=== PATIENT | female | born 1940 | race Caucasian/White ===

== ENCOUNTER 2017-05-31 15:47 | Emergency (ER) | payer MEDICARE, OTHER ==
[2017-05-31 16:13] LABS: #Eosinphils 0.2 thou/uL (0.0-0.7); #Lymphocytes 1.2 thou/uL (1.20-3.40); #Monocytes 0.7 thou/uL (0.11-0.59); #Neutrophils 11.2 thou/uL (1.40-6.50); %Basophils 0.3 % (0.0-1.0); %Eosinophils 1.8 % (0.0-10.0); %Lymphocytes 9.1 % (21.0-51.0); %Monocytes 4.9 % (0.0-10.0); Hematocrit 33.7 % (36.0-47.0); Mean Platelet Volume 7.2 fL (7.4-10.4); Red Blood Cell (RBC) Count 3.83 mill/uL (4.20-5.40); White Blood Cell (WBC) Count 13.3 thou/uL (4.8-10.8)
[2017-05-31 16:36] LABS: ALT (SGPT) 15 U/L (8-55); AST (SGOT) 33 U/L (5-34); Alkaline Phosphatase 90 U/L (40-150); Anion Gap 16 mmol/L (10-20); BUN (Urea Nitrogen) 25 mg/dL (9.8-20.1); Bilirubin, Total 0.2 mg/dL (0.2-1.2); Calc. Creatinine Clearance 0 mL/min (70-130); Calcium 10.1 mg/dL (7.8-10.44); Carbon Dioxide 23 mmol/L (23-31); Chloride 96 mmol/L (98-107); Estimated GFR-MDRD 46; Globulin 3.6 g/dL (2.4-3.5); Protein, Total 7.1 g/dL (6.0-8.3)
[2017-05-31 17:24] LABS: Bilirubin Negative (Negative); Blood, Urine Trace (Negative); Glucose, Urine (Dipstick) Negative (Negative); Ketone, Urine Negative (Negative); Nitrite Negative (Negative); Protein, Urine (Dipstick) Negative (Neg-Trace); Urobilinogen 0.2 mg/dL (0.2-1.0)
[2017-05-31 17:25] LABS: Bacteria/HPF Rare-Few HPF (None Seen); Hyaline Casts/LPF 4-6 HYALINE CAST LPF (0-3 Hyaline); RBC/HPF 0-3 HPF (0-3); Squamous Epithelial 21-50 HPF (0-3); WBC/HPF 0-3 HPF (0-3)
--- NOTE | 2017-05-31 18:47 | CT ---
CT HEAD WITHOUT IV CONTRAST 05/31/2017 HISTORY: Altered mental status after a fall. COMPARISON: None available. FINDINGS: There is decreased attenuation scattered within the periventricular and subcortical white matter whi ch is nonspecific but likely reflective of chronic small vessel ischemic changes. There is no evide nce of an acute cortical infarction, hemorrhage, mass effect, or midline shift. There is mild cereb ral volume loss not unexpected for the patient's age. The ventricular system is normal in size, sha pe, and position for the degree of sulcal atrophy. The visualized paranasal sinuses and mastoid air cells are clear. Calvarial structures are intact without evidence of a fracture. IMPRESSION: 1. No acute intracranial abnormality is demonstrated. 2. Findings likely reflective of moderate chronic small vessel ischemic changes. POS: PO
--- NOTE | 2017-05-31 19:00 | RAD ---
RIGHT KNEE FOUR VIEWS: HISTORY: A 76-year-old female with knee pain following a fall. FINDINGS: There are tricompartment degenerative changes. There are stable distal femoral and proximal tibial bone infarcts with some prominent associated ossification. No acute fracture or dislocation. IMPRESSION: No acute fracture or dislocation. Degenerative changes. 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 POS: TODD
== END 2017-05-31 18:00 | disposition home or self-care (01) ==
LOC: ERS 15:47
DX: S80.01XA Contusion of right knee, initial encounter (principal); E86.0 Dehydration; E20.9 Hypoparathyroidism, unspecified; I11.0 Hypertensive heart disease with heart failure; I50.9 Heart failure, unspecified; J44.9 Chronic obstructive pulmonary disease, unspecified; F41.9 Anxiety disorder, unspecified; F32.9 Major depressive disorder, single episode, unspecified; F17.210 Nicotine dependence, cigarettes, uncomplicated; Z79.899 Other long term (current) drug therapy; W19.XXXA Unspecified fall, initial encounter
CPT/HCPCS: 70450; 80053; 81003; 81015; 85025; 93005

== ENCOUNTER 2018-05-07 11:49 | Inpatient (IN) | payer MEDICARE, OTHER ==
[2018-05-07 12:10] LABS: Hemoglobin 10.1 g/dL (12.0-16.0); Mean Corpuscular HGB CONC 32.3 g/dL (32.0-36.0); Mean Corpuscular Hemoglobin 27.5 pg (27.0-31.0); Mean Corpuscular Volume 85.4 fL (78.0-98.0); Mean Platelet Volume 7.8 fL (7.4-10.4); Platelet Count 257 thou/uL (130-400); RBC Distribution Width 14.9 % (11.5-14.5); Red Blood Cell (RBC) Count 3.68 mill/uL (4.20-5.40); White Blood Cell (WBC) Count 9.1 thou/uL (4.8-10.8)
[2018-05-07 12:18] LABS: Prothrombin Time 13.3 SEC (12.0-14.7)
[2018-05-07 12:22] LABS: ALT (SGPT) 17 U/L (8-55); AST (SGOT) 43 U/L (5-34); Albumin 3.3 g/dL (3.4-4.8); Alkaline Phosphatase 106 U/L (40-150); Anion Gap 17 mmol/L (10-20); BUN (Urea Nitrogen) 19 mg/dL (9.8-20.1); Bilirubin, Total 0.6 mg/dL (0.2-1.2); Calc. Creatinine Clearance 0 mL/min (70-130); Calcium 9.7 mg/dL (7.8-10.44); Carbon Dioxide 19 mmol/L (23-31); Chloride 100 mmol/L (98-107); Estimated GFR-MDRD 58; Globulin 3.5 g/dL (2.4-3.5); Glucose 70 mg/dL (83-110); Potassium 4.4 mmol/L (3.5-5.1); Protein, Total 6.8 g/dL (6.0-8.3); Sodium 132 mmol/L (136-145)
[2018-05-07 12:27] LABS: CKMB 12.6 ng/mL (0-6.6); Troponin I 0.712 ng/mL (< 0.028)
[2018-05-07 12:35] LABS: Band 2 % (5-11); Hypochromia SLIGHT = 6-15 cells (100X) (0-5/hpf); Lymphocytes 6 % (21-51); MDiff Complete? YES; Monocytes 10 % (0-10); Neutrophil 82 % (42-75); PLT Morphology Comment Appears Adequate
--- NOTE | 2018-05-07 14:18 | CT ---
BRAIN CT WITHOUT IV CONTRAST: HISTORY: A 77-year-old female with slurred speech found down yesterday. FINDINGS: There is some atrophy and chronic white matter ischemic changes noted bilaterally. No focal mass or midline shift. No intra- or extraaxial hemorrhage. Status post nasal sinal surgery. The mastoids a re clear. IMPRESSION: Atrophy and chronic white matter ischemic change. No mass or bleed. Findings were discussed with Dr. Schmidt at 12:05 p.m. CODE CR POS: PO
--- NOTE | 2018-05-07 14:38 | CT ---
CT ANGIOGRAM OF THE HEAD CT ANGIOGRAM OF THE NECK CT PERFUSION OF THE BRAIN: DATE: 05/07/18. COMPARISON: None. HISTORY: Slurred speech which began yesterday at 4:00 p.m. when the patient was found down. TECHNIQUE: Serial axial CT imaging obtained at 1.25 mm intervals from the lung apices through the vertex with IV contrast using a CT angiogram protocol. Coronal and sagittal 3D reformatted imaging obtained. In a ddition, CT perfusion maps were obtained of the brain. FINDINGS: The imaged upper chest demonstrates extensive nonspecific interstitial and alveolar opacity involving bilateral upper lobes, right greater than left, as well as the bilateral lower lobes/superior segmen ts, right greater than left. Motion artifact and streak artifact limit evaluation of the oral cavity including the tongue which is deviated to the right and elevated. The retroantral and parapharyngeal fat appears grossly unremarkable bilaterally. Parotid and submand ibular glands appear grossly unremarkable as well. Thyroid gland, thyroid cartilage, cricoid cartila ge, hyoid bone, epiglottis, and preepiglottic fat appear grossly unremarkable as well. A bovine arch is noted. There is atherosclerotic calcification of the proximal descending thoracic a donato. No hemodynamically significant stenosis is seen in the region of the origin of the left common caroti d artery, left subclavian artery, right common carotid artery, or right subclavian artery. Bilateral common carotid arteries are patent. There is bilateral atherosclerotic plaque of the distal CCA and proximal ECA bilaterally. There is no hemodynamically significant stenosis involving the extracranial ICA on either side. The internal carotid artery distally on the right is tortuous. No significant stenosis is seen at the origin of either vertebral artery. Bilateral vertebral arteri es are patent and grossly unremarkable. Osseous structures of the chest demonstrate scattered degenerative changes of the cervical spine incl uding C4-5, C5-6, and C6-7 intervertebral disk levels with facet and uncovertebral osteophyte formati on as well as disk space narrowing. Distal vertebral arteries are patent. The basilar artery and its branches appear patent. No sacular aneurysm, high-grade stenosis, or vasc ular occlusion is seen involving the posterior circulation. The distal cervical and petrous ICA is patent bilaterally. There is atherosclerotic calcification of patent bilateral cavernous carotid arteries. A1 segments and distal HARRIET branches appear patent bilaterally. The M1 segment is patent bilaterally. The MCA bifurcation and distal MCA branches appear grossly unr emarkable bilaterally with no central vascular occlusion, sacular aneurysm, or high-grade stenosis in volving the anterior circulation on either side. CT PERFUSION MAPS: The axial blood volume map is normal. Cerebral axial blood flow map is normal as well. Mean transit time map demonstrates no abnormal increased MTT. IMPRESSION: 1. No evidence for central intracranial arterial occlusion. 2. Normal CT perfusion maps. 3. Patent arterial structures within the neck. 4. Extensive interstitial and alveolar opacity seen in the imaged upper lungs, right greater than le ft, suspicious for infectious pneumonitis or aspiration. Dedicated imaging of the chest advised. Results called to Dr. Schmidt 12:25 p.m. 05/07/18. CODE CR POS: PO
[2018-05-07] MEDS ORDERED: HYDROcodone/Acetaminophen 7.5/325 mg Tablet PO PRN (15:27)
[2018-05-07] MEDS ORDERED: Acetaminophen 325 MG TAB PO PRN (15:27)
[2018-05-07 15:56] VITALS: BMI 23.9
[2018-05-07] MEDS ORDERED: Gabapentin 400 MG CAP PO SCH (16:00)
[2018-05-07 16:25] LABS: Troponin I 0.763 ng/mL (< 0.028)
--- NOTE | 2018-05-07 16:25 | HP ---
DATE OF ADMISSION: 05/07/2018 CHIEF COMPLAINT: Fall. HISTORY OF PRESENT ILLNESS: This is a 77-year-old white female living independently by herself with a known past medical history of chronic low back pain with multiple surgeries in the back and with a history of a weak heart from the family. The patient was in her usual state of health. She was havi ng some diarrhea for the past few days according to the sister and the patient was found today unresp onsive in the bathroom along with the stool on the floor. The patient was not answering the phone, s o the son got suspicious and he asked his to knock on the door and when they entered the house, patient was found unresponsive at that time. Patient was very confused and had some slurred speech, so they immediately brought the patient to the ER through EMS. The patient denied it was more than 3 hours out from the event. The patient had some slurred speech and some weakness of the right hand. The patient had a CT of the head which was negative. CTA was also negative. The patient was noted to have elevated troponin of 0.71 but she denied having any chest pains. PAST MEDICAL HISTORY: 1. Chronic low back pain. 2. Hypertension. 3. History of rheumatoid arthritis. 4. Hyperlipidemia. PAST SURGICAL HISTORY: 1. History of gallbladder removal. 2. History of left knee arthroplasty. 3. Multiple back surgeries. SOCIAL HISTORY: The patient is not a nonsmoker. No history of alcohol, no history of illicit drug u se. FAMILY HISTORY: No significant family history of coronary artery disease. Family history has been r eviewed. ALLERGIES: PENICILLIN and SULFA ANTIBIOTICS. HOME MEDICATIONS: 1. Alprazolam 0.25 mg 1 tablet p.o. q.6 hours. 2. Coreg 6.25 mg p.o. b.i.d. 3. Celecoxib 200 mg 1 tablet p.o. daily. 4. Clonidine 0.1 mg tablet 1 tablet daily. 5. Estradiol. 6. Fluoxetine. 7. Gabapentin. 8. Hydrocodone. 9. Levothyroxine. 10. Losartan 25 mg 1 tablet daily. 11. Pantoprazole 40 mg p.o. as directed. REVIEW OF SYSTEMS: Unable to obtain review of systems as the patient is disoriented. PHYSICAL EXAMINATION: VITAL SIGNS: Blood pressures are 130/88, heart rate is 80, respiratory rate is 18, saturation 98%. GENERAL: The patient is moderately built and moderately nourished. She does not appear to be in acu te distress at this time. She is alert, oriented x3. HEENT: Trauma to the right side of the jaw with some bruises noted. PERRLA. Extraocular movements were intact. Oral mucosa is pink and moist. CARDIOVASCULAR: S1, S2 normal. No murmurs, rubs or gallops. LUNGS: Bilateral air entry was equal. No wheezing, no crackles. ABDOMEN: Soft, nontender, no guarding, no rebound tenderness. Bowel sounds normal. MUSCULOSKELETAL: No calf tenderness. No pedal edema. No joint tenderness, no joint swelling. SKIN: No cyanosis, no erythema, no rash, no pallor. NEUROLOGIC: Cranial nerve examination II-XII intact. No focal deficit noted at this time. LABORATORY DATA: WBC 9.1, hemoglobin is 10.1, hematocrit is 31.4, platelets 257. Sodium 132, potass ium 4.4, chloride 100, BUN 19, creatinine 0.93, blood sugar is 70. Troponin 0.712. ASSESSMENT: 1. Non-ST elevation myocardial infarction. 2. Rule out stroke. 3. Hyponatremia. 4. Anemia of chronic disease. 5. Severe protein calorie malnutrition. 6. Moderate dehydration. PLAN: 1. Plan is to closely monitor the patient with serial troponins q.6 hours and we will get a 2D echo to look for any evidence of wall motion abnormality. We will consult Cardiology at this time, we chris l continue the patient on the aspirin, beta donaldo, and statin. 2. The patient has evidence of severe dehydration. We will start the patient on IV fluids at 100 mL an hour and closely monitor her urine output. 3. Patient has evidence of anemia. No evidence of any blood in the stool, no black stools was noted . 4. We will continue the patient on iron medications. 5. Patient has evidence of slurred speech. We will have a speech evaluation and PT and OT evaluatio n and possibly get an MRI of the brain, but the patient has metal screws in her back which might proh ibit from getting an MRI. 6. History of rheumatoid arthritis. We will closely monitor. 7. Deep venous thrombosis prophylaxis, Lovenox 40 mg subcu. I spent 75 minutes with this patient.
[2018-05-07 20:32] LABS: Bilirubin Negative (Negative); Blood, Urine Trace (Negative); Clarity CLEAR (Clear); Glucose, Urine (Dipstick) Negative (Negative); Leukocyte Negative (Negative); Nitrite Negative (Negative); Protein, Urine (Dipstick) Negative (Neg-Trace); Specific Gravity, Urine 1.015 (1.002-1.036); Urobilinogen 0.2 mg/dL (0.2-1.0)
[2018-05-07 20:33] LABS: Bacteria/HPF None Seen HPF (None Seen); Hyaline Casts/LPF 7-10 HYALINE CAST LPF (0-3 Hyaline); Pathc Cast-AUWi Flag 2.32 (0-2.49); RBC/HPF 0-3 HPF (0-3); Squamous Epithelial None Seen HPF (0-3); WBC/HPF None Seen HPF (0-3)
[2018-05-07] MEDS ORDERED: Carvedilol 3.125 MG TAB PO SCH (21:00)
[2018-05-07] MEDS: HYDROcodone/Acetaminophen 7.5/325 mg Tablet PO SCH (21:27)
[2018-05-07] MEDS: Famotidine/PF 20 mg/2ml Vial SLOW IVP SCH (21:29)
[2018-05-07] MEDS: Docusate 100 MG CAP PO SCH (21:31)
[2018-05-07 22:11] LABS: Magnesium 1.9 mg/dL (1.6-2.6); Potassium 4.4 mmol/L (3.5-5.1)
[2018-05-07 22:26] LABS: Critical Call Chem Troponin I RESULT DECREASING; Troponin I 0.593 ng/mL (< 0.028)
[2018-05-08 05:26] LABS: Anion Gap 21 mmol/L (10-20); BUN (Urea Nitrogen) 17 mg/dL (9.8-20.1); Calc. Creatinine Clearance 47 mL/min (70-130); Calcium 9.1 mg/dL (7.8-10.44); Carbon Dioxide 16 mmol/L (23-31); Cardiac Risk 3.1 (Less than 4.5); Chloride 100 mmol/L (98-107); Cholesterol 117 mg/dl (< 200 Desired); Estimated GFR-MDRD 59; Glucose 67 mg/dL (83-110); HDL Cholesterol 38 mg/dL (>60 Neg Risk); LDL Cholesterol, Calculated 61 mg/dL; Potassium 4.1 mmol/L (3.5-5.1); Sodium 133 mmol/L (136-145); Triglycerides 91 mg/dL (Less than 150)
[2018-05-08] MEDS: Levothyroxine Sodium 100 MCG TAB PO SCH (06:15)
[2018-05-08 06:28] LABS: Band 4 % (5-11); Hemoglobin 9.2 g/dL (12.0-16.0); Hypochromia SLIGHT = 6-15 cells (100X) (0-5/hpf); Lymphocytes 9 % (21-51); MDiff Complete? YES; Mean Corpuscular HGB CONC 32.1 g/dL (32.0-36.0); Mean Corpuscular Hemoglobin 26.9 pg (27.0-31.0); Mean Platelet Volume 7.8 fL (7.4-10.4); Monocytes 7 % (0-10); Neutrophil 80 % (42-75); PLT Morphology Comment Appears Adequate; Platelet Count 314 thou/uL (130-400); RBC Distribution Width 14.9 % (11.5-14.5); Red Blood Cell (RBC) Count 3.41 mill/uL (4.20-5.40); White Blood Cell (WBC) Count 9.2 thou/uL (4.8-10.8)
[2018-05-08] MEDS ORDERED: ALPRAZolam 0.25 MG TAB PO PRN (07:40)
[2018-05-08] MEDS ORDERED: Clopidogrel Bisulfate 75 MG TAB PO SCH (09:00)
[2018-05-08] MEDS ORDERED: Enoxaparin Sodium 40 MG/0.4 ML SYRINGE SC SCH (09:00)
[2018-05-08] MEDS ORDERED: Carvedilol 6.25 MG TAB PO SCH (09:00)
[2018-05-08] MEDS ORDERED: Aspirin 325 MG TAB PO SCH (09:00)
[2018-05-08] MEDS: Losartan 25 MG TAB PO SCH (09:28)
[2018-05-08] MEDS: cloNIDine 0.1 MG TAB PO SCH (09:29)
[2018-05-08] MEDS: Estradiol 1 MG TAB PO SCH (09:32)
[2018-05-08] MEDS: Carvedilol 6.25 MG TAB PO SCH ×2 (09:34→18:14)
[2018-05-08] MEDS: FLUoxetine HCl 20 MG CAP PO SCH (09:34)
[2018-05-08] MEDS: Gabapentin 400 MG CAP PO SCH ×3 (09:35→22:48)
[2018-05-08] MEDS: HYDROcodone/Acetaminophen 7.5/325 mg Tablet PO SCH ×3 (09:35→22:47)
[2018-05-08] MEDS: Enoxaparin Sodium 60 MG/0.6 ML SYRINGE SC SCH ×2 (09:36→22:47)
[2018-05-08] MEDS: Famotidine/PF 20 mg/2ml Vial SLOW IVP SCH ×2 (09:37→22:48)
--- NOTE | 2018-05-08 10:30 | PDOC.PN ---
- Subjective Encounter Start Date: 05/08/18 Encounter Start Time: 07:20 -: old records requested/rev pt had dyspnea yesterday and this morning but no chest pain, has chronic multiple site pain has diarrhoea today - Objective Resuscitation Status: Resuscitation Status FULL:Full Resuscitation MAR Reviewed: Yes Vital Signs & Weight: Vital Signs (12 hours) Temp Pulse Resp BP BP Pulse Ox 05/08/18 09:34 178/70 H 05/08/18 09:29 178/70 H 05/08/18 07:20 98.4 F 91 16 156/61 H 91 L 05/08/18 04:00 98.4 F 86 20 158/67 H 92 L 05/08/18 00:20 98.2 F 89 18 133/57 L 92 L Weight Weight 130 lb 11.2 oz I&O: 05/07/18 05/08/18 05/09/18 06:59 06:59 06:59 Intake Total 240 Output Total 101 Balance -101 240 Result Diagrams: 05/08/18 04:42 05/08/18 04:42 Additional Labs: Accuchecks 05/07/18 11:55 POC Glucose 78 Radiology Reviewed by me: Yes EKG Reviewed by me: Yes Phys Exam - Physical Examination Constitutional: NAD HEENT: PERRLA, moist MMs, sclera anicteric Neck: no JVD, supple Respiratory: no wheezing, no rales, no rhonchi Cardiovascular: RRR, no significant murmur, no rub Gastrointestinal: soft, non-tender, no distention, positive bowel sounds Musculoskeletal: no edema, pulses present Neurological: non-focal, normal sensation Lymphatic: no nodes Psychiatric: normal affect, A&O x 3 Skin: no rash, normal turgor Dx/Plan (1) NSTEMI (non-ST elevated myocardial infarction) Code(s): I21.4 - NON-ST ELEVATION (NSTEMI) MYOCARDIAL INFARCTION Status: Acute (2) Anemia, normocytic normochromic Code(s): D64.9 - ANEMIA, UNSPECIFIED Status: Chronic (3) Anxiety and depression Code(s): F41.9 - ANXIETY DISORDER, UNSPECIFIED; F32.9 - MAJOR DEPRESSIVE DISORDER, SINGLE EPISODE, UNSPECIFIED Status: Chronic (4) Dyslipidemia Code(s): E78.5 - HYPERLIPIDEMIA, UNSPECIFIED Status: Chronic (5) GERD (gastroesophageal reflux disease) Code(s): K21.9 - GASTRO-ESOPHAGEAL REFLUX DISEASE WITHOUT ESOPHAGITIS Status: Chronic (6) Hypertension Code(s): I10 - ESSENTIAL (PRIMARY) HYPERTENSION Status: Chronic (7) Hypothyroidism Code(s): E03.9 - HYPOTHYROIDISM, UNSPECIFIED Status: Chronic (8) Protein-calorie malnutrition, moderate Code(s): E44.0 - MODERATE PROTEIN-CALORIE MALNUTRITION Status: Chronic - Plan cont current plan of care, plan discussed w/ family * check UA and urine culture * check stool for c-diff * echo * get chest xray * lovenox 1 mg /kg sc bid, add plavix, aspirin and lipitor * cardiology consulted * discussed with family * medication reviewed as below * symptomatic treatment. Review of Systems - Review of Systems Eyes: negative: Pain, Vision Change, Conjunctivae Inflammation, Eyelid Inflammation, Redness, Other ENT: negative: Ear Pain, Ear Discharge, Nose Pain, Nose Discharge, Nose Congestion, Mouth Pain, Mouth Swelling, Throat Pain, Throat Swelling, Other Respiratory: negative: Cough, Dry, Shortness of Breath, Hemoptysis, SOB with Excertion, Pleuritic Pain, Sputum, Wheezing Cardiovascular: negative: chest pain, palpitations, orthopnea, paroxysmal nocturnal dyspnea, edema, light headedness, other Gastrointestinal: negative: Nausea, Vomiting, Abdominal Pain, Diarrhea, Constipation, Melena, Hematochezia, Other Genitourinary: negative: Dysuria, Frequency, Incontinence, Hematuria, Retention , Other Musculoskeletal: negative: Neck Pain, Shoulder Pain, Arm Pain, Back Pain, Hand Pain, Leg Pain, Foot Pain, Other Skin: negative: Rash, Lesions, Rob, Bruising, Other - Medications/Allergies Allergies/Adverse Reactions: Allergies Allergy/AdvReac Type Severity Reaction Status Date / Time Penicillins Allergy Verified 05/07/18 15:50 Sulfa (Sulfonamide Allergy Verified 05/07/18 15:50 Antibiotics) Medications: Current Medications Acetaminophen (Tylenol) 650 mg PO Q4H PRN PRN Reason: Headache/Fever or Pain Last Admin: 05/07/18 18:44 Dose: 650 mg Hydrocodone Bitart/Acetaminophen (Adams 7.5/325) 1 tab PO Q4H PRN PRN Reason: Moderate Pain (4-6) Hydrocodone Bitart/Acetaminophen (Adams 7.5/325) 1 tab PO TID REPLACED BY [facility] Last Admin: 05/08/18 09:35 Dose: 1 tab Alprazolam (Xanax) 0.25 mg PO Q6H PRN PRN Reason: Anxiety Aspirin (Aspirin) 325 mg PO DAILY REPLACED BY [facility] Last Admin: 05/08/18 09:32 Dose: 325 mg Atorvastatin Calcium (Lipitor) 40 mg PO HS REPLACED BY [facility] Carvedilol (Coreg) 6.25 mg PO BID-WM REPLACED BY [facility] Last Admin: 05/08/18 09:34 Dose: 6.25 mg Clonidine (Catapres) 0.1 mg PO DAILY REPLACED BY [facility] Last Admin: 05/08/18 09:29 Dose: 0.1 mg Clopidogrel Bisulfate (Plavix) 75 mg PO DAILY REPLACED BY [facility] Last Admin: 05/08/18 09:29 Dose: 75 mg Docusate Sodium (Colace) 100 mg PO BID REPLACED BY [facility] Last Admin: 05/07/18 21:31 Dose: Not Given Enoxaparin Sodium (Lovenox) 60 mg SC 0900,2100 REPLACED BY [facility] Last Admin: 05/08/18 09:36 Dose: 60 mg Estradiol (Estrace) 0.5 mg PO DAILY REPLACED BY [facility] Last Admin: 05/08/18 09:32 Dose: 0.5 mg Famotidine (Pepcid) 20 mg SLOW IVP Q12HR REPLACED BY [facility] Last Admin: 05/08/18 09:37 Dose: 20 mg Fluoxetine HCl (Prozac) 20 mg PO DAILY REPLACED BY [facility] Last Admin: 05/08/18 09:34 Dose: 20 mg Gabapentin (Neurontin) 400 mg PO TID REPLACED BY [facility] Last Admin: 05/08/18 09:35 Dose: 400 mg Levothyroxine Sodium (Synthroid) 100 mcg PO 0600 REPLACED BY [facility] Last Admin: 05/08/18 06:15 Dose: 100 mcg Losartan Potassium (Cozaar) 25 mg PO DAILY REPLACED BY [facility] Last Admin: 05/08/18 09:28 Dose: 25 mg Pantoprazole Sodium (Protonix) 40 mg PO DAILY REPLACED BY [facility] Last Admin: 05/08/18 09:29 Dose: 40 mg
--- NOTE | 2018-05-08 10:46 | PDOC.CTH ---
<Felicita Saucedo - Last Filed: 05/08/18 10:51> Cardiology Progress Note - Subjective The pt seen and examined. No overnight events. No cardiac complaints. Per family, the pt could not have back surgery because of her heart. However, no record in her chart at this moment. - Objective Vital Signs Temp Pulse Resp BP BP Pulse Ox 05/08/18 09:34 178/70 H 05/08/18 09:29 178/70 H 05/08/18 07:20 98.4 F 91 16 156/61 H 91 L 05/08/18 04:00 98.4 F 86 20 158/67 H 92 L 05/08/18 00:20 98.2 F 89 18 133/57 L 92 L Weight 130 lb 11.2 oz 05/07/18 05/08/18 05/09/18 06:59 06:59 06:59 Intake Total 240 Output Total 101 Balance -101 240 - Physical Examination General/Neuro: alert & oriented x3 Lungs: CTA Heart: RRR Abdomen: soft Extremities: other: (No edema) - Telemetry Telemetry Rhythm: SR - Labs Result Diagrams: 05/08/18 04:42 05/08/18 04:42 Troponin/CKMB CK-MB (CK-2) 12.6 ng/mL (0-6.6) H* 05/07/18 11:54 Troponin I 0.593 ng/mL (< 0.028) H* 05/07/18 21:42 - Assessment/Plan 1. SVTs - stable with Coreg, which was increased to 6.25mg BID from today. cont. to monitor on tele. 2. Elevated trop - possible from rhabdomyolysis; Echo was taken and the result is pending at this time. Plavix,Lovenox BID, and ASA 325mg were added by PCP 3. HTN - Coreg was increased to 6.25mg BID from today 4. Hypothyroidism - 5. Hyperlipidemia - on Statin 6. Anemia - Worsening today. 7. Anxiety and depression - 8. Chronic diarrhea - will check C-diff. MAR reviewed Review of Systems - Review of Systems Constitutional: reports: no symptoms reported EENTM: reports: no symptoms reported Respiratory: reports: no symptoms reported Cardiac (ROS): reports: no symptoms reported ABD/GI: reports: no symptoms reported : reports: no symptoms reported Musculoskeletal: reports: back pain <Nevarez,G Sohan - Last Filed: 05/09/18 11:25> Cardiology Progress Note - Objective Vital Signs Temp Pulse Resp BP BP Pulse Ox 05/09/18 09:08 122/54 L 05/09/18 09:07 122/54 L 05/09/18 08:59 98.2 F 84 16 98 05/09/18 07:56 98.2 F 84 16 122/54 L 98 05/09/18 04:44 98.5 F 83 16 115/55 L 93 L Weight 130 lb 11.2 oz 05/08/18 05/09/18 05/10/18 06:59 06:59 06:59 Intake Total 790 Output Total 101 Balance -101 790 - Labs Result Diagrams: 05/09/18 08:17 05/09/18 08:17 Troponin/CKMB CK-MB (CK-2) 6.1 ng/mL (0-6.6) 05/09/18 08:17 Troponin I 0.132 ng/mL (< 0.028) H 05/09/18 08:17 - Assessment/Plan pt. seen and eval. by me. I agree with the A/P by the LOGGING SUPERVISOR.
--- NOTE | 2018-05-08 12:58 | RAD ---
FRONTAL RADIOGRAPH CHEST: DTE: 05/08/18. COMPARISON: 06/01/03. HISTORY: Pulmonary parenchymal infiltrates noted on recent CT exam. FINDINGS: There is asymmetric increased linear interstitial and alveolar opacity within the right lung diffusel y, most prominent in the right base. Similar subtle increased linear densities are noted within the medial left lung base. No pneumothorax or large-volume pleural effusion. IMPRESSION: Nonspecific interstitial and alveolar opacity, right greater than left. POS: [facility]
[2018-05-08] MEDS: Docusate 100 MG CAP PO SCH ×2 (15:25→22:45)
[2018-05-08 21:19] LABS: Bilirubin Negative (Negative); Blood, Urine Trace (Negative); Clarity CLEAR (Clear); Glucose, Urine (Dipstick) Negative (Negative); Leukocyte Negative (Negative); Nitrite Negative (Negative); Protein, Urine (Dipstick) Trace mg/dL (Neg-Trace); Specific Gravity, Urine 1.022 (1.002-1.036); Urobilinogen 0.2 mg/dL (0.2-1.0); pH, Urine 5.5 (5.0-9.0)
[2018-05-08 21:20] LABS: Bacteria/HPF None Seen HPF (None Seen); Hyaline Casts/LPF 7-10 HYALINE CAST LPF (0-3 Hyaline); WBC/HPF 0-3 HPF (0-3)
[2018-05-08 21:32] LABS: Other Casts/LPF 0-3 COARSE GRAN LPF (0-3 Hyaline)
[2018-05-08] MEDS: Atorvastatin Calcium 40 MG TAB PO SCH (22:48)
[2018-05-09] MEDS: Levothyroxine Sodium 100 MCG TAB PO SCH (06:36)
--- NOTE | 2018-05-09 08:34 | PDOC.CTH ---
<Felicita Saucedo - Last Filed: 05/09/18 08:35> Cardiology Progress Note - Subjective The pt seen and examined. No overnight events. No cardiac complaints. Cont. complaining of generalized weakness. She seems mildly confused. She was instructed to call for any help. RN will set bed alarm on for the pt's fall prevention. - Objective Vital Signs Temp Pulse Resp BP Pulse Ox 05/09/18 07:56 98.2 F 84 16 122/54 L 98 05/09/18 04:44 98.5 F 83 16 115/55 L 93 L 05/08/18 22:47 98.6 F 85 20 120/56 L 93 L Weight 130 lb 11.2 oz 05/08/18 05/09/18 05/10/18 06:59 06:59 06:59 Intake Total 790 Output Total 101 Balance -101 790 - Physical Examination General/Neuro: alert & oriented x3 (with intermittent confusion), other: Lungs: CTA Heart: RRR Abdomen: soft Extremities: other: (No edema) - Telemetry Telemetry Rhythm: SR - Labs Result Diagrams: 05/08/18 04:42 05/08/18 04:42 Troponin/CKMB CK-MB (CK-2) 12.6 ng/mL (0-6.6) H* 05/07/18 11:54 Troponin I 0.593 ng/mL (< 0.028) H* 05/07/18 21:42 - Assessment/Plan 1. SVTs - stable with Coreg 6.25mg BID. 2. Elevated trop - possible from rhabdomyolysis; Plavix was stopped. ASA was changed from 325mg to 81mg qd. 3. HTN - stable with current med. 4. Hypothyroidism - managed by PCP 5. Hyperlipidemia - on Statin 6. Anemia - lab was done this AM 7. Anxiety and depression - 8. Chronic diarrhea - Cdiff was negative; MAR reviewed * Echo on 05/08/18 showed 60-65%, mod dilated LA, mild ERA, trace MR and TR. Review of Systems - Review of Systems Constitutional: reports: weakness EENTM: reports: no symptoms reported Respiratory: reports: no symptoms reported Cardiac (ROS): reports: no symptoms reported ABD/GI: reports: no symptoms reported : reports: no symptoms reported Musculoskeletal: reports: no symptoms reported Skin: reports: no symptoms reported <Caren Nevarez - Last Filed: 05/09/18 22:12> Cardiology Progress Note - Objective Vital Signs Temp Pulse Resp BP BP Pulse Ox 05/09/18 20:00 98.5 F 81 16 106/49 L 93 L 05/09/18 16:44 117/55 L 05/09/18 15:56 99.3 F 84 16 117/54 L 94 L 05/09/18 12:00 98.4 F 75 16 104/66 94 L Weight 130 lb 11.2 oz 05/08/18 05/09/18 05/10/18 06:59 06:59 06:59 Intake Total 790 Output Total 101 Balance -101 790 - Labs Result Diagrams: 05/09/18 08:17 05/09/18 08:17 Troponin/CKMB CK-MB (CK-2) 6.1 ng/mL (0-6.6) 05/09/18 08:17 Troponin I 0.132 ng/mL (< 0.028) H 05/09/18 08:17 - Assessment/Plan Pt. seen and eval. y me.I agree with the A/P by the CH[employer] BUTCHER.No further cardiac workup at this time. Wheezing,RRR.
[2018-05-09 08:41] LABS: #Eosinphils 0.2 thou/uL (0.0-0.7); #Lymphocytes 1.4 thou/uL (1.20-3.40); #Monocytes 0.8 thou/uL (0.11-0.59); #Neutrophils 4.9 thou/uL (1.40-6.50); %Basophils 0.4 % (0.0-1.0); %Eosinophils 2.3 % (0.0-10.0); %Lymphocytes 18.9 % (21.0-51.0); %Monocytes 10.7 % (0.0-10.0); %Neutrophils 67.6 % (42.0-75.0); Hemoglobin 9.4 g/dL (12.0-16.0); Mean Corpuscular HGB CONC 31.3 g/dL (32.0-36.0); Mean Corpuscular Hemoglobin 26.4 pg (27.0-31.0); Mean Corpuscular Volume 84.3 fL (78.0-98.0); Platelet Count 375 thou/uL (130-400); RBC Distribution Width 15.4 % (11.5-14.5); Red Blood Cell (RBC) Count 3.55 mill/uL (4.20-5.40); White Blood Cell (WBC) Count 7.3 thou/uL (4.8-10.8)
[2018-05-09 08:51] LABS: Anion Gap 21 mmol/L (10-20); BUN (Urea Nitrogen) 13 mg/dL (9.8-20.1); CK (CPK) 146 U/L (29-168); Calc. Creatinine Clearance 50 mL/min (70-130); Calcium 9.2 mg/dL (7.8-10.44); Carbon Dioxide 15 mmol/L (23-31); Chloride 100 mmol/L (98-107); Estimated GFR-MDRD 64; Glucose 65 mg/dL (83-110); Potassium 3.9 mmol/L (3.5-5.1); Sodium 132 mmol/L (136-145)
[2018-05-09 08:56] LABS: CKMB 6.1 ng/mL (0-6.6); Troponin I 0.132 ng/mL (< 0.028)
[2018-05-09] MEDS: Docusate 100 MG CAP PO SCH ×2 (09:05→22:50)
[2018-05-09] MEDS: FLUoxetine HCl 20 MG CAP PO SCH (09:05)
[2018-05-09] MEDS: Estradiol 1 MG TAB PO SCH (09:05)
[2018-05-09] MEDS: Gabapentin 400 MG CAP PO SCH ×3 (09:05→22:50)
[2018-05-09] MEDS: HYDROcodone/Acetaminophen 7.5/325 mg Tablet PO SCH ×3 (09:06→22:51)
[2018-05-09] MEDS: Enoxaparin Sodium 60 MG/0.6 ML SYRINGE SC SCH (09:06)
[2018-05-09] MEDS: Carvedilol 6.25 MG TAB PO SCH ×2 (09:07→16:44)
[2018-05-09] MEDS: Famotidine/PF 20 mg/2ml Vial SLOW IVP SCH ×2 (09:07→22:50)
[2018-05-09] MEDS: Losartan 25 MG TAB PO SCH (09:08)
[2018-05-09] MEDS: cloNIDine 0.1 MG TAB PO SCH (09:08)
--- NOTE | 2018-05-09 10:59 | ADD-CON ---
DATE OF CONSULTATION: 05/07/2018 ADDENDUM INDICATION FOR CONSULTATION: A 77-year-old female who has been having some problems with failure to thrive, nausea, diarrhea, and weakness overall who was admitted with some slurred speech and was felt to have possibly having suffered a CVA; however, cardiac enzymes were obtained and she had a slight elevation of the cardiac enzymes with a troponin I of 0.7. However, this has continued to trend down wards since the patient was admitted. The first set was 0.712, then increased up to 0.763, and is no w back down to 0.593 with an MB of 12.6; however, the CK was 637 and this is certainly within reasona ble limit to have an MB of 12.6 with such an elevated CK. This may be due to some illnesses she has suffered or perhaps a fall since she was found on the floor I believe. She has had some ecchymosis a nd bruising. She has had no previous cardiac history that we are aware as far as coronary disease is concerned, and I would consider this to be indeterminant, not to say that she does not have coronary artery disease, but it does not appear that she has any significant continuation of a myocardial inf arction or even ischemia at this time. I believe she has had a CT scan performed and there have been no acute findings, as well as a CT angiogram, which also showed no significant abnormalities. She d oes appear to be somewhat confused still, is uncertain about times and dates, but otherwise appears t o be awake at this time. PAST MEDICAL HISTORY: Please refer to the notes dictated by the nurse practitionerFelicita. SOCIAL HISTORY: Please refer to the notes dictated by the nurse practitionerFelicita. FAMILY HISTORY: Please refer to the notes dictated by the nurse practitionerFelicita. REVIEW OF SYSTEMS: Please refer to the notes dictated by the nurse practitionerFelicita. MEDICATIONS: Please refer to the notes dictated by the nurse practitionerFelicita. ALLERGIES: Please refer to the notes dictated by the nurse practitionerFelicita. PHYSICAL EXAMINATION: GENERAL: A middle-aged female who is in no acute distress at this time. VITAL SIGNS: Blood pressure is 138/88, heart rates in the 80s and shows a regular rhythm, respirator y rate is 18. HEENT: Some ecchymosis probably from her previous fall. She has more of a problem with the chin are a, where she has a significant bruise there from the fall. Otherwise, HEENT exam seems to be unremar kable. CHEST: Clear without any rales, rhonchi, or wheezing. CARDIOVASCULAR: She has a regular rhythm. I do not hear any significant murmurs, heaves, thrills, b ruits, or rubs. ABDOMEN: Soft and nontender on the chest area. Please note, she does have some ecchymosis also in t he anterior chest wall, most likely where she fell. Abdominal exam otherwise is unremarkable. EXTREMITIES: No clubbing or cyanosis. No lower extremity edema. NEUROLOGIC: I cannot elicit any gross focal motor deficit. She does appear to be slightly confused however and appears to be fatigued. LABORATORY DATA: Anemia with a hemoglobin of 10.1, creatinine was 0.93, and troponin I as noted jany nguyen. IMPRESSION: 1. Abnormal cardiac enzymes, which may be due to demand ischemia or significant elevation of total C K. When she is more stable, we could always consider undergoing some type of stress test. She thoug ht that she had had some type of stress testing in the past, but I do not have any records of this. At this time, she remains pain-free. We will continue to monitor her. We can consider stress testin g in the near future. 2. Anemia of uncertain etiology, most likely due to multiple chronic disease. 3. Malnutrition. It was thought that the patient perhaps had some dehydration, but her BUN and crea tinine ratio was not significantly elevated to indicate severe dehydration. We will be more than hap py to continue to follow this patient with you. We will review an echocardiogram for evaluation of l eft ventricular systolic function and further recommendations will depend on the results of the echoc ardiogram. At this time, overall, she appears to be stable from a cardiac standpoint.
--- NOTE | 2018-05-09 11:18 | CON ---
DATE OF CONSULTATION: 05/07/2018 PRIMARY ITEM PROCESSOR: Mary Carmen Nevarez MD REFERRING PHYSICIAN: Víctor Willett MD REASON FOR CARDIOLOGY CONSULTATION: Non-STEMI with fall. HISTORY OF PRESENT ILLNESS: Ms. Gonzalez is a very pleasant 77-year-old female with a si gnificant history of hypertension, hyperlipidemia, osteoarthritis with multiple hip and knee replacem ents. Currently, she is living at [place]. At this moment, the patient is in and out confused, so the patient's information was obtained from patient's report and also patient's medical record. Acc ording to patient's medical record, the patient was going to bathroom for diarrhea every 5 minutes an d when she get up from the bed, she hit her jaw and her chest and she fell, and her sister and daught er-in-law called the ambulance and the patient was transferred to Emergency Department for further ev aluation and treatment. She was found to have dehydration. However, according to patient's medical history and physical report, she was found unresponsive in the bathroom along with stool on the floor instead of in the room hitting the table. At this moment, the patient denied any chest discomfort, tightness, heaviness; palpitation or fluttering in her chest; shortness of breath; dizziness; lighthe adedness; or any other cardiac complaints. Per patient, she had never seen a casino porter before. T here are no family members in her room at this moment. PAST MEDICAL HISTORY: 1. Chronic back pain. 2. Hypertension. 3. Osteoarthritis. 4. Hyperlipidemia. 5. COPD. 6. Congestive heart failure according to patient medical record. 7. History of fall in 05/2017. 8. Anxiety and depression. PAST SURGICAL HISTORY: 1. Cholecystectomy. 2. Left knee surgery. 3. Multiple back surgeries. 4. Hysterectomy at the age of 19. FAMILY HISTORY: The patient's sister had AK at the age of 30s, other than that very healthy family. SOCIAL HISTORY: She is , but living by herself in [place] at this moment. She has 2 sons, who live well. She is an ex-smoker. The patient reported she quit in 2011; however, medical record in 05/2017 shows the patient still smoking. She denies ETOH or tobacco abuse. She enjoys 1 can of C otf once a day. ALLERGIES: She is allergic to PENICILLIN and SULFA MEDICINE. REVIEW OF SYSTEMS: Twelve-point review of systems was negative, unless otherwise mentioned in the HP I. However, patient information cannot be obtained from the patient due to the confusion. HOME MEDICATIONS: 1. Clonidine 0.1 mg once a day. 2. Protonix 20 mg once a day. 3. Levothyroxine 100 mg once a day. 4. Hydrocodone and acetaminophen 7.5/325 one tablet 3 times a day. 5. Neurontin 400 mg once a day. 6. Fluoxetine 20 mg 1 capsule once a day. 7. Estradiol 0.5 mg once a day. 8. Celecoxib 200 mg once a day. 9. Carvedilol 6.25 mg twice a day. 10. Alprazolam 0.25 mg once a day. PHYSICAL EXAMINATION: VITAL SIGNS: Blood pressure 152/53, pulse is 85 with a sinus rhythm, temperature 97.5, respiratory r ate 18, O2 sat 94% with room air. GENERAL: The patient is alert, but intermittent confusion. HEENT: Head, normocephalic and atraumatic. NECK: There are pulsations to the bilateral jugular vein arteries, but the neck was supple. Normal range of motion. RESPIRATORY: Lungs are clear to auscultation bilaterally. CARDIOVASCULAR: Normal. Regular rate and rhythm. There are S1 and S2. There are no S3 or S4. The re are no significant murmur, hives, or thrill noted; and 2+ pulses in bilateral lower extremities wi thout any edema. ABDOMEN: Soft, nontender. No mass to palpate. Bowel sounds are present. MUSCULOSKELETAL: The patient is able to turn herself. She have 2+ pulses in bilateral lower extremi ties. The patient denied claudication. SKIN: She has multiple bruising under her jaw, chest, and arms; but warm to dry. No skin lesion, br uise, or erythema. PSYCHIATRIC: The patient's mood is appropriate, but again the patient has intermittent confusion. LABORATORY DATA: WBC is 9.1, hemoglobin 10.1, hematocrit of 31.4, platelets 257. INR at 1.0. Chemi stry: Sodium of 132, potassium 4.4, BUN 19, creatinine 0.93, glucose 78. Creatine kinase is 637, CK -MB is 12.6. Troponin to 0.763. CT scan showing negative for stroke. ASSESSMENT AND PLAN: 1. Elevated troponin level, the level was to 0.763. She is going to have another troponin lev el right now to see how the trend is. Also, the patient's creatinine kinase is elevated, possibly du e to dehydration, because she was on the floor, unknown length. Also, she has chronic diarrhea . At this moment, she is on Coreg and Lovenox and ARB for possible coronary artery disease. 2. Hypertension. Her blood pressure is stable at this moment. We would like to continue to monitor . 3. Chronic diarrhea. She used to have diarrhea 3-4 times a day for a little while and that even tho ugh she is admitted to the hospital, she has had 1-2 times a day. 4. Hyperlipidemia. Currently, she is not on statin medication. We will start the medicine once the patient's condition is stable. 5. Anxiety and depression. She is stable at this moment. We would like to continue to monitor, whi ch is managed by the patient's primary care doctor. 6. Chronic obstructive pulmonary disease. The patient's breathing is normal. We would like to cont inue to monitor. Thank you for allowing the Cardiology Service to participate in the care of this patient. We will fo llow along with Patient Care Team and make recommendation as appropriate.
--- NOTE | 2018-05-09 11:29 | PDOC.PN ---
- Subjective Encounter Start Date: 05/09/18 Encounter Start Time: 07:20 Patient seen and examined. No new complaints. No overnight events - Objective Resuscitation Status: Resuscitation Status FULL:Full Resuscitation MAR Reviewed: Yes Vital Signs & Weight: Vital Signs (12 hours) Temp Pulse Resp BP BP Pulse Ox 05/09/18 09:08 122/54 L 05/09/18 09:07 122/54 L 05/09/18 08:59 98.2 F 84 16 98 05/09/18 07:56 98.2 F 84 16 122/54 L 98 05/09/18 04:44 98.5 F 83 16 115/55 L 93 L Weight Weight 130 lb 11.2 oz I&O: 05/08/18 05/09/18 05/10/18 06:59 06:59 06:59 Intake Total 790 Output Total 101 Balance -101 790 Result Diagrams: 05/09/18 08:17 05/09/18 08:17 Radiology Reviewed by me: Yes (echo report noted) EKG Reviewed by me: Yes Phys Exam - Physical Examination Constitutional: NAD HEENT: PERRLA, moist MMs, sclera anicteric Neck: no JVD, supple Respiratory: no wheezing, no rales, no rhonchi Cardiovascular: RRR, no significant murmur, no rub Gastrointestinal: soft, non-tender, no distention, positive bowel sounds Musculoskeletal: no edema, pulses present Neurological: non-focal, normal sensation, moves all 4 limbs Psychiatric: normal affect, A&O x 3 Skin: normal turgor Deviation from normal: bruise from recent fall noted Dx/Plan (1) NSTEMI (non-ST elevated myocardial infarction) Code(s): I21.4 - NON-ST ELEVATION (NSTEMI) MYOCARDIAL INFARCTION Status: Ruled -out Comment: as per cardiology no NSTEMI but related with high CK (2) Anemia, normocytic normochromic Code(s): D64.9 - ANEMIA, UNSPECIFIED Status: Chronic (3) Anxiety and depression Code(s): F41.9 - ANXIETY DISORDER, UNSPECIFIED; F32.9 - MAJOR DEPRESSIVE DISORDER, SINGLE EPISODE, UNSPECIFIED Status: Chronic (4) Dyslipidemia Code(s): E78.5 - HYPERLIPIDEMIA, UNSPECIFIED Status: Chronic (5) GERD (gastroesophageal reflux disease) Code(s): K21.9 - GASTRO-ESOPHAGEAL REFLUX DISEASE WITHOUT ESOPHAGITIS Status: Chronic (6) Hypertension Code(s): I10 - ESSENTIAL (PRIMARY) HYPERTENSION Status: Chronic (7) Hypothyroidism Code(s): E03.9 - HYPOTHYROIDISM, UNSPECIFIED Status: Chronic (8) Protein-calorie malnutrition, moderate Code(s): E44.0 - MODERATE PROTEIN-CALORIE MALNUTRITION Status: Chronic - Plan cont current plan of care, PT/OT * CK improved, cardiac enzyme also tended down * as per cardiology, nstemi ruled out and abnormal troponin related with rhabdomyolysis * will dc lovenox, plavix stopped * continue coreg for now * medical treatment for now * further plan will defer to cardiology if needed * otherwise we are expecting discharge soon * medication reviewed as below * symptomatic treatment. Review of Systems - Review of Systems Eyes: negative: Pain, Vision Change, Conjunctivae Inflammation, Eyelid Inflammation, Redness, Other ENT: negative: Ear Pain, Ear Discharge, Nose Pain, Nose Discharge, Nose Congestion, Mouth Pain, Mouth Swelling, Throat Pain, Throat Swelling, Other Respiratory: negative: Cough, Dry, Shortness of Breath, Hemoptysis, SOB with Excertion, Pleuritic Pain, Sputum, Wheezing Cardiovascular: negative: chest pain, palpitations, orthopnea, paroxysmal nocturnal dyspnea, edema, light headedness, other Gastrointestinal: negative: Nausea, Vomiting, Abdominal Pain, Diarrhea, Constipation, Melena, Hematochezia, Other Genitourinary: negative: Dysuria, Frequency, Incontinence, Hematuria, Retention , Other Musculoskeletal: negative: Neck Pain, Shoulder Pain, Arm Pain, Back Pain, Hand Pain, Leg Pain, Foot Pain, Other - Medications/Allergies Allergies/Adverse Reactions: Allergies Allergy/AdvReac Type Severity Reaction Status Date / Time Penicillins Allergy Verified 05/07/18 15:50 Sulfa (Sulfonamide Allergy Verified 05/07/18 15:50 Antibiotics) Medications: Current Medications Acetaminophen (Tylenol) 650 mg PO Q4H PRN PRN Reason: Headache/Fever or Pain Last Admin: 05/07/18 18:44 Dose: 650 mg Hydrocodone Bitart/Acetaminophen ([place] 7.5/325) 1 tab PO Q4H PRN PRN Reason: Moderate Pain (4-6) Hydrocodone Bitart/Acetaminophen ([place] 7.5/325) 1 tab PO TID RADHA Last Admin: 05/09/18 09:06 Dose: 1 tab Alprazolam (Xanax) 0.25 mg PO Q6H PRN PRN Reason: Anxiety Aspirin (Aspirin Chewable) 81 mg PO DAILY [facility] Last Admin: 05/09/18 09:05 Dose: 81 mg Atorvastatin Calcium (Lipitor) 40 mg PO HS [facility] Last Admin: 05/08/18 22:48 Dose: 40 mg Carvedilol (Coreg) 6.25 mg PO BID-WM [facility] Last Admin: 05/09/18 09:07 Dose: 6.25 mg Clonidine (Catapres) 0.1 mg PO DAILY [facility] Last Admin: 05/09/18 09:08 Dose: 0.1 mg Docusate Sodium (Colace) 100 mg PO BID [facility] Last Admin: 05/09/18 09:05 Dose: 100 mg Enoxaparin Sodium (Lovenox) 60 mg SC 0900,2100 [facility] Last Admin: 05/09/18 09:06 Dose: 60 mg Estradiol (Estrace) 0.5 mg PO DAILY [facility] Last Admin: 05/09/18 09:05 Dose: 0.5 mg Famotidine (Pepcid) 20 mg SLOW IVP Q12HR [facility] Last Admin: 05/09/18 09:07 Dose: 20 mg Fluoxetine HCl (Prozac) 20 mg PO DAILY [facility] Last Admin: 05/09/18 09:05 Dose: 20 mg Gabapentin (Neurontin) 400 mg PO TID [facility] Last Admin: 05/09/18 09:05 Dose: 400 mg Levothyroxine Sodium (Synthroid) 100 mcg PO 0600 [facility] Last Admin: 05/09/18 06:36 Dose: 100 mcg Losartan Potassium (Cozaar) 25 mg PO DAILY [facility] Last Admin: 05/09/18 09:08 Dose: 25 mg Pantoprazole Sodium (Protonix) 40 mg PO DAILY [facility] Last Admin: 05/09/18 09:05 Dose: 40 mg
--- NOTE | 2018-05-09 12:43 | PQF ---
DATE: 05-09-18 ATTN: DR. JOSÉ LUIS SHABAZZ Please exercise your independent, professional judgment in responding to the clarification form. Clinical indicators are provided on the bottom of this form for your review Please check appropriate box(s): [ ] Encephalopathy: Type: [ ] Acute [ ] Subacute [ ] Chronic Etiology: [ ] Hypertensive [ ] Metabolic [ ] Toxic [ ] in the setting of underlying dementia [ ] Other (please specify) [ x] Transient Alteration of Awareness [ ] Other diagnosis [ ] Unable to determine In addition, please specify: Present on Admission (POA): [ x ] Yes [ ] No [ ] Unable to determine For continuity of documentation, please document condition throughout progress notes and discharge summary. Thank You. CLINICAL INDICATORS - SIGNS / SYMPTOMS / LABS ER: PRESENTS FOR EVALUATION OF MENTAL STATUS CHANGE, SLURRED SPEECH, FOUND PT ON THE GROUND IN BETWEEN THE TOILET AND THE TUB H&P: PATIENT WAS VERY CONFUSED AND HAD SOME SLURRED SPEECH CONSULT NOTE SCOUT HORNER NP 05-07-18: AT THE MOMENT, PT IS IN AND OUT CONFUSED, HAS INTERMITTENT CONFUSION H&P: SEVERE PROTEIN CALORIE MALNUTRITION RISK FACTORS: H&P: NSTEMI, R/O STROKE, HYPONATREMIA, SEVERE PROTEIN MALNUTRITION, MODERATE DEHYDRATION TREATMENTS: BRAIN CT 05-07-18 (This form is maintained as a part of the permanent medical record) 2014 [employer]. All Rights Reserved ILIANA [email or web address] Office: [phone] [facility]
[2018-05-09] MEDS: Atorvastatin Calcium 40 MG TAB PO SCH (22:51)
[2018-05-10] MEDS ORDERED: Enoxaparin Sodium 40 MG/0.4 ML SYRINGE SC SCH (09:00)
[2018-05-10] MEDS: Famotidine/PF 20 mg/2ml Vial SLOW IVP SCH (09:45)
[2018-05-10] MEDS: Gabapentin 400 MG CAP PO SCH ×2 (09:45→17:52)
[2018-05-10] MEDS: Carvedilol 6.25 MG TAB PO SCH ×2 (09:45→20:29)
[2018-05-10] MEDS: Estradiol 1 MG TAB PO SCH (09:45)
[2018-05-10] MEDS: Losartan 25 MG TAB PO SCH (09:45)
[2018-05-10] MEDS: FLUoxetine HCl 20 MG CAP PO SCH (09:45)
[2018-05-10] MEDS: HYDROcodone/Acetaminophen 7.5/325 mg Tablet PO SCH ×2 (09:45→17:53)
[2018-05-10] MEDS: cloNIDine 0.1 MG TAB PO SCH (09:45)
--- NOTE | 2018-05-10 11:53 | DIS ---
DATE OF ADMISSION: 05/07/2018 DATE OF DISCHARGE: 05/10/2018 PRIMARY CARE PHYSICIAN: [facility] call admission. DISCHARGE DISPOSITION: Home. PRIMARY DISCHARGE DIAGNOSES: Paroxysmal supraventricular tachycardia, abnormal troponin due to rhabd omyolysis, mechanical fall. SECONDARY DISCHARGE DIAGNOSES: Protein calorie malnutrition moderate, hypothyroidism, hypertension, gastroesophageal reflux disease, dyslipidemia, anxiety and depression, normocytic normochromic anemia . PRIMARY PROCEDURE/OPERATION: None. RADIOLOGICAL INVESTIGATION: In the emergency room, patient was evaluated for stroke protocol with CT head and neck angiography with brain perfusion study which was normal. CT brain was negative. Ches t x-ray was unremarkable. Echocardiography showed normal EF. SIGNIFICANT LABORATORY DATA: WBC 7.3, hemoglobin 9.4, platelets 375. INR 1.0. Sodium 132, potassiu m 3.9, BUN 13, creatinine 0.86. Troponin 0.132. BNP 179.1, LDL 61. TSH 1.25. Urinalysis unremarka ble. C. diff negative. Urine culture negative. DISCHARGE MEDICATIONS: Levaquin 500 mg p.o. daily for 5 days, Xanax 0.25 mg q.6 hourly p.r.n., Coreg 6.25 mg p.o. b.i.d., celecoxib 200 mg p.o. daily p.r.n., Catapres 0.1 mg p.o. daily, estradiol 0.5 m g p.o. daily, Prozac 20 mg daily, Neurontin 400 mg p.o. as directed, [place] 1 tablet t.i.d. p.r.n., Sy nthroid 100 mcg p.o. daily, losartan 25 mg p.o. daily, Protonix 20 mg p.o. as directed, aspirin 81 mg p.o. daily, Lipitor 10 mg p.o. at bedtime. CONTRAINDICATIONS: None. CODE STATUS: FULL CODE. INPATIENT CONSULTANTS: Cardiology was following while in hospital and they recommended that elevated troponin was related with rhabdomyolysis. TEST RESULTS PENDING ON DISCHARGE: None. ALLERGIES: PENICILLIN and SULFA DRUGS. DISCHARGE PLAN: Post hospital, patient will follow up with primary care physician as instructed. HOSPITAL COURSE: A 77-year-old female who had mechanical fall at her home. The patient was admitted by Dr. Willtet. Patient came to the ER with stroke alert and that is why in the emergency room, keny devlin had CT brain, head and neck angiography with brain perfusion study and CT brain which was normal. Patient's history was not consistent with stroke. When we did serial cardiac enzymes, we found that her troponin was significantly elevated and she was complaining of cough and shortness of breath. Agnes nguyen consulted Cardiology and Cardiology was thinking that the patient had elevated total CK and that wa s contributing to her troponin elevation. While in hospital, she did not have any chest pain. We hy drated her with IV fluid. While in hospital, we did echocardiography, which showed normal EF. On , we are prescribing Levaquin because there was? infiltration in lung field, though patient do es not have any classic symptoms of pneumonia, but we decided to treat empirically for 5 more days of the Levaquin. We also prescribed Lipitor 5 mg p.o. at bedtime. The patient is seen and examined at bedside today. Plan of care discussed with the family member. Rodrigue cantu does not have any change in physical examination from yesterday. Her vitals are stable. Plan of care discussed with the family member. I discussed with the Cardiology and they are also cleared her for discharge. The patient does not want to go to any kind of rehabilitation or any placement a nd she prefers to go home and that is why based on her request, we are discharging to assisted living facility where she has support from her sister. All new medication prescriptions given to her. The patient is medically stable for discharge today. If this patient comes back with recurrent fall in future, then she will benefit from placement.
[2018-05-10] MEDS: Docusate 100 MG CAP PO SCH (14:25)
--- NOTE | 2018-05-10 14:27 | RAD ---
ONE VIEW CHEST: HISTORY: Lung parenchymal infiltrate. COMPARISON: 05/08/18 FINDINGS: Portable upright chest demonstrates persistent opacification in the right hemithorax. The jugular op acification has slightly decreased. Chronic changes in the left lung base. No pneumothorax or osseo us abnormalities. IMPRESSION: Improved aeration of the right lung. Persistent opacities do remain. Continued surveillance to complete resolution is recommended. POS: [facility]
[2018-05-10 16:29] VITALS: TEMP 98.4
[2018-05-10] MEDS: Levothyroxine Sodium 100 MCG TAB PO SCH (20:29)
[2018-05-10 20:30] VITALS: BP 137/67
== END 2018-05-10 17:35 | disposition home or self-care (01) | DRG 308 ==
LOC: ERS 11:49 → 2SE 14:56
PROVIDERS: ADMIT Family Medicine; ATTEND Family Medicine
DX: I47.1 Supraventricular tachycardia (principal); E43 Unspecified severe protein-calorie malnutrition; M62.82 Rhabdomyolysis; E87.1 Hypo-osmolality and hyponatremia; E86.0 Dehydration; D63.8 Anemia in other chronic diseases classified elsewhere; M06.9 Rheumatoid arthritis, unspecified; E78.5 Hyperlipidemia, unspecified; M54.5 Low back pain; G89.29 Other chronic pain; I48.0 Paroxysmal atrial fibrillation; M19.90 Unspecified osteoarthritis, unspecified site; J44.9 Chronic obstructive pulmonary disease, unspecified; F41.9 Anxiety disorder, unspecified; F32.9 Major depressive disorder, single episode, unspecified; Z90.49 Acquired absence of other specified parts of digestive tract; Z91.81 History of falling; Z79.899 Other long term (current) drug therapy; Z88.2 Allergy status to sulfonamides; Z90.710 Acquired absence of both cervix and uterus; Z88.0 Allergy status to penicillin; Z68.23 Body mass index [BMI] 23.0-23.9, adult
CPT/HCPCS: 0042T; 36415; 36416; 51701; 70450; 70496; 70498; 71045; 80048; 80053; 80061; 81001; 81003; 81015; 82550; 82553; 83735; 83880; 84443; 84484; 85025; 85610; 85730; 87086; 87324; 87449; 93005; 93010; 93306; A4353; G8978-GP-CJ; G8979-GP-CI; G8987-GO-CJ; G8988-GO-CI; G9162-GN-CH; G9163-GN-CH; G9164-GN-CH; J1650; S0028

== ENCOUNTER 2018-06-07 14:25 | Outpatient (CLI) | payer MEDICARE, OTHER ==
--- NOTE | 2018-06-07 16:28 | RAD ---
THORACOLUMBAR TWO VIEW SPOT VIEWS: 06/07/18 AP and lateral views of the thoracolumbar spine are performed. HISTORY: 77-year-old female with history of radiculopathy lumbar region, spondylosis, patient fell one week ag o. There is severe scoliosis of the thoracolumbar vertebral column convexed to the right side at the upp er lumbar lower thoracic level. Pedicle screws and rods are noted at L3, L4, L5, and S1. There is sig nificant acute rotational changes of the upper lumbar spine as well as T12 and L1 and L2. The amount of scoliosis probably has worsened when compared to a 05/02/17 CT commercial subcontractor film. Extensive multilevel spon dylosis. Examination is significantly limited because of the severe scoliosis deformity. IMPRESSION: Severe S-shaped scoliosis convexed to the right side at the lumbothoracic spine region. Pedicle screw s and rods stabilizing L3, L4, L5 and S1. Possibly worsening scoliosis since the prior CT commercial subcontractor film of 05/02/17. Given history of trauma and if the patient has acute pain, I would certainly suggest consi deration for a followup thoracic spine and lumbar spine CT scan for further assessment of these sherice ons given the limited evaluation on this plain film study. POS: OFF
== END 2018-06-07 14:26 | disposition home or self-care (01) ==
LOC: BICRAD 14:25
DX: M51.16 Intervertebral disc disorders with radiculopathy, lumbar region (principal); M47.26 Other spondylosis with radiculopathy, lumbar region; M96.1 Postlaminectomy syndrome, not elsewhere classified; M41.9 Scoliosis, unspecified
CPT/HCPCS: 72080

== ENCOUNTER 2019-10-23 14:21 | Outpatient (CLI) | payer MEDICARE, OTHER ==
--- NOTE | 2019-10-23 15:15 | RAD ---
EXAM: 2 views of the bilateral knees HISTORY: Knee pain COMPARISON: None FINDINGS: No knee effusion is seen. There is no evidence of acute fracture or dislocation. Hardware i s seen in the proximal left tibia. Sclerotic lesions in both distal femurs and proximal tibias likely represent bone infarctions. Moderate joint space narrowing is seen in the right knee medial fe morotibial compartment. There is severe joint space narrowing and osteophyte formation in the right knee patellofemoral compartment. No soft tissue swelling is present. IMPRESSION: Right knee osteoarthritis
== END 2019-10-23 14:22 | disposition home or self-care (01) ==
LOC: BICRAD 14:21
PROVIDERS: ATTEND Anesthesiology Pain Medicine
DX: M17.11 Unilateral primary osteoarthritis, right knee (principal)
CPT/HCPCS: 73565

== ENCOUNTER 2021-08-15 12:26 | Outpatient (CLI) | payer MEDICARE, OTHER | END 2021-08-15 12:27 | disposition home or self-care (01) | LOC: BICRAD 12:26 | PROVIDERS: ATTEND Anesthesiology Pain Medicine | DX: M47.816 Spondylosis without myelopathy or radiculopathy, lumbar region (principal); M51.36 Other intervertebral disc degeneration, lumbar region; M96.1 Postlaminectomy syndrome, not elsewhere classified | CPT/HCPCS: 72072; 72110 ==

== ENCOUNTER 2021-09-04 11:29 | Inpatient (IN) | payer MEDICARE, OTHER ==
[2021-09-04] MEDS ORDERED: Rocuronium Bromide 10 MG/ML (10ML VIAL) ONE (11:37)
[2021-09-04 12:08] LABS: #Lymphocytes 1.8 thou/uL (1.20-3.40); #Monocytes 1.5 thou/uL (0.11-0.59); #Neutrophils 11.9 thou/uL (1.40-6.50); %Eosinophils 0.1 % (0.0-10.0); %Lymphocytes 11.7 % (21.0-51.0); %Monocytes 9.6 % (0.0-10.0); %Neutrophils 78.5 % (42.0-75.0); Mean Corpuscular HGB CONC 31.8 g/dL (32.0-36.0); Mean Corpuscular Hemoglobin 29.4 pg (27.0-31.0); Mean Corpuscular Volume 92.4 fL (78.0-98.0); Mean Platelet Volume 11.1 fL (7.4-10.4); Platelet Count 179 thou/uL (130-400); RBC Distribution Width 14.1 % (11.5-14.5); Red Blood Cell (RBC) Count 4.77 mill/uL (4.20-5.40); White Blood Cell (WBC) Count 15.2 thou/uL (4.8-10.8)
[2021-09-04 12:50] LABS: Bacteria/HPF None Seen HPF (None Seen); Bilirubin Negative (Negative); Blood, Urine 2+ (Negative); Clarity Turbid (Clear); Glucose, Urine (Dipstick) Normal (Negative); Ketone, Urine 10 mg/dL (Negative); Leukocyte Negative Leu/uL (Negative); Nitrite Negative (Negative); Protein, Urine (Dipstick) 70 mg/dL (Neg-Trace); RBC/HPF 0-3 HPF (0-3); Specific Gravity, Urine 1.014 (1.002-1.036); Squamous Epithelial 0-3 HPF (0-3); Urobilinogen Normal mg/dL (Less than 2); WBC/HPF 0-3 HPF (0-3)
[2021-09-04 12:56] LABS: Amphetamine Not Detected (NotDetected); Barbiturates Screen Not Detected (NotDetected); Benzodiazepine Screen Detected (NotDetected); Cocaine Metabolite Screen Not Detected (NotDetected); Methadone Not Detected (NotDetected); Methamphetamine Not Detected (NotDetected); Opiate Screen Detected (NotDetected); Oxycodone Screen Not Detected (NotDetected); Phencyclidine (PCP) Not Detected (NotDetected); THC/Cannabinoid Screen Not Detected (NotDetected); Tricyclic Screen Not Detected (NotDetected)
[2021-09-04 13:07] LABS: Acetaminophen Less than 6.0 mcg/mL (10.0-30.0); Alcohol Less than 10 mg/dL (Less than 10); Salicylate Less than 8.0 mg/dL (15.0-30.0)
[2021-09-04 13:58] LABS: Chloride 89 mmol/L (98-107); Potassium 3.4 mmol/L (3.5-5.1); Sodium 136 mmol/L (136-145)
[2021-09-04 14:00] LABS: Glucose 93 mg/dL (83-110)
[2021-09-04 14:01] LABS: Anion Gap 28 mmol/L (10-20); Carbon Dioxide 22 mmol/L (23-31)
[2021-09-04 14:02] LABS: Bilirubin, Total 0.5 mg/dL (0.2-1.2)
[2021-09-04 14:02] LABS: Actual Bicarbonate (HCO3a) 35.8 mEq/L (22-28); Analyzer IN Cardio ER; Base Excess (BEa) 9.9 mEq/L (-2.0 to +3.0); CO2 Tension 53.3 mmHg (35.0-45.0); Calcium, Ionized (arterial) 1.47 mmol/L (1.12-1.30); Carboxyhemoglobin (COHb) 0.3 gm% (0.0-3.0); Hemoglobin (Hb) 13.4 g/dL (12.0-16.0); Potassium - ABG Lab 3.33 mmol/L (3.70-5.30); pH, Arterial 7.45 (7.35-7.45)
[2021-09-04 14:03] LABS: Alkaline Phosphatase 77 U/L (40-110); Calc. Creatinine Clearance 0 mL/min (70-130)
[2021-09-04 14:04] LABS: BUN (Urea Nitrogen) 27 mg/dL (9.8-20.1); Calcium 13.4 mg/dL (7.8-10.44)
[2021-09-04 14:04] LABS: ALV-art Gradient 375.375 mmHg (0-20); Puncture Site LBA
[2021-09-04 14:05] LABS: AST (SGOT) 189 U/L (5-34)
[2021-09-04 14:06] LABS: ALT (SGPT) 59 U/L (8-55)
[2021-09-04 14:46] LABS: SARS-CoV-2 NAA Rapid Test Not Detected (NotDetected)
[2021-09-04] MEDS ORDERED: Morphine 4 MG/ML VIAL ONE ×2 (15:03→15:44)
[2021-09-04 15:09] LABS: CKMB 3.1 ng/mL (0-6.6)
[2021-09-04] MEDS ORDERED: Sodium Chloride 0.9% 1,000 ML IV SCH (16:00)
[2021-09-04] MEDS ORDERED: Meropenem 1 GM in Sodium Chloride 0.9% 100 ML IVPB SCH ×2 (16:04→18:00)
[2021-09-04] MEDS ORDERED: Ondansetron ODT 4 MG TAB PO PRN (16:07)
[2021-09-04] MEDS ORDERED: Senokot S 8.6-50 MG TAB PO PRN (16:07)
[2021-09-04] MEDS ORDERED: Acetaminophen 325 MG TAB PO PRN (16:07)
[2021-09-04] MEDS ORDERED: Bisacodyl 5 MG TAB PO PRN (16:07)
[2021-09-04 16:35] LABS: Hemoglobin A1c 5.3 % (4.0-6.0)
[2021-09-04 16:45] LABS: Lactic Acid 4.8 mmol/L (0.5-2.2)
[2021-09-04] MEDS ORDERED: Potassium Chloride 20 MEQ TAB PO SCH (17:00)
[2021-09-04] MEDS ORDERED: MEROPENEM 1 GM/50 ML 1 GM in Premix Bag 1 BAG IVPB SCH (17:15)
[2021-09-04 17:17] LABS: Troponin I 0.242 ng/mL (< 0.028)
[2021-09-04] MEDS: Sodium Chloride 0.9% 1,000 ML IV SCH (18:05)
[2021-09-04] MEDS ORDERED: Metoprolol Tartrate 50 MG TAB PO SCH (21:00)
[2021-09-04] MEDS ORDERED: Metoprolol Tartrate 5 MG/5 ML VIAL IVP SCH (21:30)
[2021-09-04] MEDS: Famotidine/PF 20 mg/2ml Vial SLOW IVP SCH (21:54)
[2021-09-05] MEDS ORDERED: Meropenem 500 MG in Sodium Chloride 0.9% 100 ML IVPB SCH (01:00)
[2021-09-05] MEDS: Sodium Chloride 0.9% 1,000 ML IV SCH ×3 (02:10→22:33)
[2021-09-05 04:58] LABS: Lactic Acid 2.3 mmol/L (0.5-2.2)
[2021-09-05 05:03] LABS: Anion Gap 18 mmol/L (10-20); BUN (Urea Nitrogen) 53 mg/dL (9.8-20.1); Calc. Creatinine Clearance 19 mL/min (70-130); Calcium 11.2 mg/dL (7.8-10.44); Carbon Dioxide 28 mmol/L (23-31); Chloride 94 mmol/L (98-107); Glucose 79 mg/dL (83-110); Potassium 3.5 mmol/L (3.5-5.1); Sodium 136 mmol/L (136-145)
[2021-09-05] MEDS ORDERED: Polyethylene Glycol 3350 17 GM Packet PO PRN (08:15)
[2021-09-05] MEDS: Morphine 4 MG/ML VIAL SLOW IVP PRN ×2 (11:34→23:35)
[2021-09-05 13:12] LABS: Actual Bicarbonate (HCO3v) 26 mEq/L (22-28); Base Excess 0.7 mEq/L (-2.0 to +3.0); Calcium, Ionized (venous) 1.19 mmol/L (1.16-1.32); Chloride (VBG) 98 mmol/L (98-106); Hemoglobin (Hb) 11.4 g/dL (11.7-16.1); Potassium (VBG) 2.98 mmol/L (3.70-5.30); Sodium 139.8 mmol/L (133-146); pH (venous) 7.41 (7.32-7.43)
[2021-09-05 15:29] LABS: Magnesium 1.6 mg/dL (1.6-2.6)
[2021-09-05] MEDS: Potassium Chloride 10 MEQ in Premix Bag 1 BAG IVPB SCH ×5 (16:20→21:29)
[2021-09-05] MEDS: Carvedilol 6.25 MG TAB PO SCH (17:07)
[2021-09-05] MEDS ORDERED: Bisacodyl 10 MG SUPP PR PRN (18:12)
[2021-09-05] MEDS: Magnesium 2 GM/50 ML 2 GM in Premix Bag 1 BAG IVPB SCH ×2 (21:13→22:30)
[2021-09-05] MEDS: Famotidine/PF 20 mg/2ml Vial SLOW IVP SCH (21:21)
[2021-09-06] MEDS: Sodium Chloride 0.9% 1,000 ML IV SCH (01:17)
[2021-09-06] MEDS: Morphine 4 MG/ML VIAL SLOW IVP PRN ×2 (04:03→11:38)
[2021-09-06] MEDS: Carvedilol 6.25 MG TAB PO SCH ×2 (08:13→16:01)
[2021-09-06] MEDS ORDERED: ALPRAZolam 0.25 MG TAB PO PRN (13:22)
[2021-09-06] MEDS: Lorazepam 2 MG/ML VIAL SLOW IVP SCH ×2 (15:18→21:34)
[2021-09-06] MEDS: D5 NS w/ 40 mEq KCl 1,000 ML IV SCH ×2 (16:30→23:45)
[2021-09-06] MEDS ORDERED: Temazepam 15 MG CAP PO PRN (21:00)
[2021-09-06] MEDS: Estradiol 1 MG TAB PO SCH (21:39)
[2021-09-06] MEDS: Polyethylene Glycol 3350 17 GM Packet PO SCH (21:39)
[2021-09-06] MEDS: Pantoprazole 40 MG VIAL IVP SCH (21:52)
[2021-09-06] MEDS: Fleet Enema 133 ML BOT PR SCH (22:54)
[2021-09-07] MEDS: Lorazepam 2 MG/ML VIAL SLOW IVP SCH ×4 (02:47→15:40)
[2021-09-07 05:22] LABS: Anion Gap 12 mmol/L (10-20); BUN (Urea Nitrogen) 28 mg/dL (9.8-20.1); Calc. Creatinine Clearance 36 mL/min (70-130); Calcium 8.8 mg/dL (7.8-10.44); Carbon Dioxide 25 mmol/L (23-31); Chloride 115 mmol/L (98-107); Glucose 151 mg/dL (83-110); Magnesium 2.1 mg/dL (1.6-2.6); Potassium 3.6 mmol/L (3.5-5.1); Sodium 148 mmol/L (136-145)
[2021-09-07 05:29] LABS: Band 21 % (5-11); Lymphocytes 8 % (21-51); MDiff Complete? YES; Mean Corpuscular Hemoglobin 29.9 pg (27.0-31.0); Mean Corpuscular Volume 93.4 fL (78.0-98.0); Mean Platelet Volume 8.6 fL (7.4-10.4); Monocytes 6 % (0-10); Neutrophil 65 % (42-75); Platelet Count 200 thou/uL (130-400); Platelet Morphology Comment Appears Adequate; RBC Distribution Width 13.6 % (11.5-14.5); RBC Morphology Normal; Red Blood Cell (RBC) Count 3.03 mill/uL (4.20-5.40); White Blood Cell (WBC) Count 13.3 thou/uL (4.8-10.8)
[2021-09-07] MEDS: Levothyroxine Sodium 100 MCG TAB PO SCH (06:36)
[2021-09-07] MEDS: D5 NS w/ 40 mEq KCl 1,000 ML IV SCH (07:02)
[2021-09-07] MEDS: Carvedilol 6.25 MG TAB PO SCH ×2 (09:21→17:01)
[2021-09-07] MEDS: Estradiol 1 MG TAB PO SCH ×2 (09:21→21:21)
[2021-09-07] MEDS: DULoxetine 60 MG CAP PO SCH (09:21)
[2021-09-07] MEDS: FLUoxetine HCl 20 MG CAP PO SCH (09:22)
[2021-09-07] MEDS: Polyethylene Glycol 3350 17 GM Packet PO SCH ×2 (09:23→21:22)
[2021-09-07] MEDS: Pantoprazole 40 MG VIAL IVP SCH ×2 (09:33→21:24)
[2021-09-07] MEDS: Stress 600 With Zinc 1 TAB PO SCH (10:01)
[2021-09-07] MEDS: Fleet Enema 133 ML BOT PR SCH ×2 (13:14→21:22)
[2021-09-07] MEDS ORDERED: Lorazepam 2 MG/ML VIAL SLOW IVP PRN (17:17)
[2021-09-07] MEDS: Potassium Chloride 40 MEQ in Dextrose 5% in Water 1,000 ML IV SCH (17:40)
[2021-09-08] MEDS: Potassium Chloride 40 MEQ in Dextrose 5% in Water 1,000 ML IV SCH (03:15)
[2021-09-08] MEDS: Levothyroxine Sodium 100 MCG TAB PO SCH (05:43)
[2021-09-08 05:44] LABS: Anion Gap 13 mmol/L (10-20); BUN (Urea Nitrogen) 16 mg/dL (9.8-20.1); Calc. Creatinine Clearance 46 mL/min (70-130); Calcium 8.8 mg/dL (7.8-10.44); Carbon Dioxide 23 mmol/L (23-31); Chloride 122 mmol/L (98-107); Glucose 120 mg/dL (83-110); Potassium 4.3 mmol/L (3.5-5.1); Sodium 154 mmol/L (136-145)
[2021-09-08 05:44] LABS: Band 8 % (5-11); Hemoglobin 10.8 g/dL (12.0-16.0); Hypochromia SLIGHT = 6-15 cells (100X) (0-5/hpf); Lymphocytes 25 % (21-51); MDiff Complete? YES; Mean Corpuscular HGB CONC 32.6 g/dL (32.0-36.0); Mean Corpuscular Hemoglobin 30.3 pg (27.0-31.0); Mean Platelet Volume 9.2 fL (7.4-10.4); Monocytes 10 % (0-10); Neutrophil 57 % (42-75); Platelet Count 195 thou/uL (130-400); Platelet Morphology Comment Appears Adequate; RBC Distribution Width 13.8 % (11.5-14.5); Red Blood Cell (RBC) Count 3.55 mill/uL (4.20-5.40); White Blood Cell (WBC) Count 11.9 thou/uL (4.8-10.8)
[2021-09-08] MEDS ORDERED: Potassium Chloride 40 MEQ in Dextrose 5% in Water 1,000 ML IV SCH (09:09)
[2021-09-08] MEDS: Lorazepam 2 MG/ML VIAL SLOW IVP PRN (13:07)
[2021-09-08] MEDS: Dextrose 5% w/ 20 mEq KCl 1,000 ML IV SCH ×2 (13:10→21:27)
[2021-09-08] MEDS: Carvedilol 6.25 MG TAB PO SCH ×2 (14:59→17:14)
[2021-09-08] MEDS: Estradiol 1 MG TAB PO SCH ×2 (15:00→21:27)
[2021-09-08] MEDS: Polyethylene Glycol 3350 17 GM Packet PO SCH ×2 (15:00→21:27)
[2021-09-08] MEDS: Fleet Enema 133 ML BOT PR SCH ×3 (15:01→21:37)
[2021-09-08] MEDS: FLUoxetine HCl 20 MG CAP PO SCH (16:55)
[2021-09-08] MEDS: DULoxetine 60 MG CAP PO SCH (16:55)
[2021-09-08] MEDS: Stress 600 With Zinc 1 TAB PO SCH (16:55)
[2021-09-08] MEDS: [UNRECOGNIZED DRUG - OTHER] PO SCH (16:56)
[2021-09-08] MEDS: Pantoprazole 40 MG VIAL IVP SCH ×2 (17:06→21:27)
[2021-09-09] MEDS: Levothyroxine Sodium 100 MCG TAB PO SCH (05:19)
[2021-09-09] MEDS: Dextrose 5% w/ 20 mEq KCl 1,000 ML IV SCH ×3 (05:23→17:46)
[2021-09-09 05:49] LABS: Band 10 % (5-11); Hemoglobin 10.7 g/dL (12.0-16.0); Lymphocytes 19 % (21-51); MDiff Complete? YES; Mean Corpuscular HGB CONC 31.8 g/dL (32.0-36.0); Mean Corpuscular Hemoglobin 30.7 pg (27.0-31.0); Mean Corpuscular Volume 96.4 fL (78.0-98.0); Mean Platelet Volume 8.5 fL (7.4-10.4); Monocytes 14 % (0-10); Neutrophil 57 % (42-75); Platelet Count 171 thou/uL (130-400); Platelet Morphology Comment Appears Adequate; RBC Distribution Width 13.5 % (11.5-14.5); RBC Morphology Normal; Red Blood Cell (RBC) Count 3.49 mill/uL (4.20-5.40); White Blood Cell (WBC) Count 9.7 thou/uL (4.8-10.8)
[2021-09-09 05:55] LABS: Anion Gap 14 mmol/L (10-20); BUN (Urea Nitrogen) 11 mg/dL (9.8-20.1); Calc. Creatinine Clearance 46 mL/min (70-130); Calcium 8.2 mg/dL (7.8-10.44); Carbon Dioxide 21 mmol/L (23-31); Chloride 110 mmol/L (98-107); Glucose 126 mg/dL (83-110); Magnesium 1.4 mg/dL (1.6-2.6); Potassium 3.9 mmol/L (3.5-5.1); Sodium 141 mmol/L (136-145)
[2021-09-09 05:56] LABS: Phosphorus Less than 1.0 mg/dL (2.3-4.7)
[2021-09-09] MEDS ORDERED: Electrolyte Replacement Protocol 1 EACH FS SCH (06:15)
[2021-09-09] MEDS ORDERED: Magnesium Sulfate 4 GM in Sodium Chloride 0.9% 250 ML 250 ML IVPB SCH (06:30)
[2021-09-09] MEDS ORDERED: Potassium Phosphate 30 MMOL in Sodium Chloride 0.9% 250 ML 250 ML IVPB SCH (06:30)
[2021-09-09] MEDS ORDERED: Carvedilol 6.25 MG TAB PER TUBE SCH ×2 (10:12→10:45)
[2021-09-09] MEDS ORDERED: Levothyroxine Sodium 100 MCG TAB PER TUBE SCH ×2 (10:12→10:45)
[2021-09-09] MEDS ORDERED: FLUoxetine HCl 20 MG CAP PER TUBE SCH ×2 (10:12→10:45)
[2021-09-09] MEDS: Pantoprazole 40 MG VIAL IVP SCH ×2 (10:43→21:51)
[2021-09-09] MEDS: Polyethylene Glycol 3350 17 GM Packet PO SCH ×2 (10:43→21:51)
[2021-09-09] MEDS: Estradiol 1 MG TAB PO SCH ×2 (10:44→21:51)
[2021-09-09] MEDS: Fleet Enema 133 ML BOT PR SCH ×2 (10:44→21:52)
[2021-09-09] MEDS: DULoxetine 60 MG CAP PO SCH (10:44)
[2021-09-09] MEDS: Stress 600 With Zinc 1 TAB PO SCH (10:45)
[2021-09-09] MEDS: HYDROcodone/Acetaminophen 10/325 mg Tablet PO PRN ×2 (10:47→17:45)
[2021-09-09] MEDS: FLUoxetine HCl 20 MG CAP PO SCH (10:58)
[2021-09-09] MEDS: Carvedilol 6.25 MG TAB PO SCH (10:59)
[2021-09-09] MEDS: Carvedilol 6.25 MG TAB PER TUBE SCH (17:45)
[2021-09-10] MEDS: Levothyroxine Sodium 100 MCG TAB PER TUBE SCH (05:17)
[2021-09-10] MEDS: Dextrose 5% w/ 20 mEq KCl 1,000 ML IV SCH (05:17)
[2021-09-10] MEDS: Estradiol 1 MG TAB PO SCH ×2 (10:13→21:12)
[2021-09-10] MEDS: DULoxetine 60 MG CAP PO SCH (10:13)
[2021-09-10] MEDS: FLUoxetine HCl 20 MG CAP PER TUBE SCH (10:14)
[2021-09-10] MEDS: Carvedilol 6.25 MG TAB PER TUBE SCH ×3 (10:14→18:17)
[2021-09-10] MEDS: Pantoprazole 40 MG VIAL IVP SCH ×2 (10:14→21:12)
[2021-09-10] MEDS: Polyethylene Glycol 3350 17 GM Packet PO SCH ×2 (10:15→21:12)
[2021-09-10] MEDS: Stress 600 With Zinc 1 TAB PO SCH (10:16)
[2021-09-10] MEDS: Fleet Enema 133 ML BOT PR SCH ×2 (10:16→21:12)
[2021-09-10 11:03] LABS: Hemoglobin 10.7 g/dL (12.0-16.0); Mean Corpuscular HGB CONC 32.1 g/dL (32.0-36.0); Mean Corpuscular Hemoglobin 29.6 pg (27.0-31.0); Mean Corpuscular Volume 92.1 fL (78.0-98.0); Mean Platelet Volume 9.2 fL (7.4-10.4); Platelet Count 200 thou/uL (130-400); RBC Distribution Width 13.4 % (11.5-14.5); White Blood Cell (WBC) Count 12.1 thou/uL (4.8-10.8)
[2021-09-10 11:27] LABS: Anion Gap 10 mmol/L (10-20); BUN (Urea Nitrogen) 11 mg/dL (9.8-20.1); Calc. Creatinine Clearance 44 mL/min (70-130); Calcium 7.9 mg/dL (7.8-10.44); Carbon Dioxide 23 mmol/L (23-31); Chloride 103 mmol/L (98-107); Glucose 119 mg/dL (83-110); Phosphorus 1.1 mg/dL (2.3-4.7); Potassium 4.6 mmol/L (3.5-5.1); Sodium 131 mmol/L (136-145)
[2021-09-10 11:49] LABS: Band 9 % (5-11); Eosinophils 2 % (0-10); Lymphocytes 16 % (21-51); MDiff Complete? YES; Monocytes 7 % (0-10); Neutrophil 66 % (42-75); Nucleated RBC 1 % (0); Platelet Morphology Comment Appears Adequate; Polychromasia SLIGHT = 2-3 cells (100X) (0-2/hpf)
[2021-09-10] MEDS ORDERED: NS 0.9% w/ 40 MEQ KCL 1,000 ML IV SCH (12:45)
[2021-09-10] MEDS: HYDROcodone/Acetaminophen 10/325 mg Tablet PO PRN (12:45)
[2021-09-10] MEDS ORDERED: Magnesium 2 GM/50 ML 2 GM in Premix Bag 1 BAG IVPB SCH (13:00)
[2021-09-10] MEDS: PHOS-NAK 1 PKT PACK PER TUBE SCH ×2 (14:38→22:27)
[2021-09-10] MEDS: Sodium Chloride 0.9% 1,000 ML IV SCH (14:39)
[2021-09-10 14:41] VITALS: BMI 16.3
[2021-09-10] MEDS: Lorazepam 2 MG/ML VIAL SLOW IVP PRN (18:07)
[2021-09-11] MEDS: Sodium Chloride 0.9% 1,000 ML IV SCH (01:00)
[2021-09-11] MEDS ORDERED: Furosemide 20 MG/2 ML VIAL SLOW IVP SCH ×2 (05:00→21:30)
[2021-09-11] MEDS ORDERED: Furosemide 40 MG/4 ML VIAL ONE (05:08)
[2021-09-11] MEDS: Levothyroxine Sodium 100 MCG TAB PER TUBE SCH (05:16)
[2021-09-11] MEDS: Carvedilol 6.25 MG TAB PER TUBE SCH ×3 (09:54→18:54)
[2021-09-11 11:00] LABS: #Eosinphils 0.1 thou/uL (0.0-0.7); #Lymphocytes 1.4 thou/uL (1.20-3.40); #Monocytes 1.2 thou/uL (0.11-0.59); #Neutrophils 13.5 thou/uL (1.40-6.50); %Basophils 0.1 % (0.0-1.0); %Eosinophils 0.5 % (0.0-10.0); %Lymphocytes 8.7 % (21.0-51.0); %Monocytes 7.2 % (0.0-10.0); %Neutrophils 83.5 % (42.0-75.0); Hemoglobin 9.5 g/dL (12.0-16.0); Mean Corpuscular HGB CONC 31.4 g/dL (32.0-36.0); Mean Corpuscular Hemoglobin 28.8 pg (27.0-31.0); Mean Corpuscular Volume 91.7 fL (78.0-98.0); Mean Platelet Volume 8.6 fL (7.4-10.4); Platelet Count 236 thou/uL (130-400); RBC Distribution Width 13.6 % (11.5-14.5); Red Blood Cell (RBC) Count 3.32 mill/uL (4.20-5.40); White Blood Cell (WBC) Count 16.2 thou/uL (4.8-10.8)
[2021-09-11 11:30] LABS: Anion Gap 13 mmol/L (10-20); BUN (Urea Nitrogen) 11 mg/dL (9.8-20.1); Calc. Creatinine Clearance 41 mL/min (70-130); Calcium 7.7 mg/dL (7.8-10.44); Carbon Dioxide 19 mmol/L (23-31); Chloride 105 mmol/L (98-107); Glucose 125 mg/dL (83-110); Phosphorus 2.5 mg/dL (2.3-4.7); Potassium 4.4 mmol/L (3.5-5.1); Sodium 133 mmol/L (136-145)
[2021-09-11] MEDS: Polyethylene Glycol 3350 17 GM Packet PO SCH ×2 (11:50→21:21)
[2021-09-11] MEDS: Pantoprazole 40 MG VIAL IVP SCH ×2 (11:50→21:28)
[2021-09-11] MEDS: Estradiol 1 MG TAB PO SCH ×2 (13:19→21:33)
[2021-09-11] MEDS: DULoxetine 60 MG CAP PO SCH (13:19)
[2021-09-11] MEDS: FLUoxetine HCl 20 MG CAP PER TUBE SCH (13:20)
[2021-09-11] MEDS: PHOS-NAK 1 PKT PACK PER TUBE SCH ×2 (13:23→21:33)
[2021-09-11] MEDS: Fleet Enema 133 ML BOT PR SCH ×2 (13:25→21:22)
[2021-09-11] MEDS: Stress 600 With Zinc 1 TAB PO SCH (13:27)
[2021-09-11] MEDS: Lorazepam 2 MG/ML VIAL SLOW IVP PRN (13:46)
[2021-09-11] MEDS: Furosemide 20 MG/2 ML VIAL SLOW IVP SCH ×2 (20:41→21:29)
[2021-09-11 20:58] LABS: Actual Bicarbonate (HCO3a) 23.1 mEq/L (22-28); CO2 Tension 28.5 mmHg (35.0-45.0); Calcium, Ionized (arterial) 1.07 mmol/L (1.12-1.30); Carboxyhemoglobin (COHb) 0.6 gm% (0.0-3.0); Hemoglobin (Hb) 10.3 g/dL (12.0-16.0); Potassium - ABG Lab 4.45 mmol/L (3.70-5.30); pH, Arterial 7.53 (7.35-7.45)
[2021-09-11] MEDS ORDERED: Cefepime 1 GM in Sodium Chloride 0.9% 100 ML IVPB SCH (21:00)
[2021-09-11 21:59] LABS: SARS-CoV-2 NAA Rapid Test Not Detected (NotDetected)
[2021-09-11] MEDS ORDERED: Vancomycin HCl 750 MG in Sodium Chloride 0.9% 250 ML 250 ML IVPB SCH (22:00)
[2021-09-11 22:25] VITALS: BP 107/52
[2021-09-11] MEDS: Morphine 4 MG/ML VIAL SLOW IVP PRN (23:08)
[2021-09-12] MEDS: Lorazepam 2 MG/ML VIAL SLOW IVP PRN (00:51)
[2021-09-12] MEDS ORDERED: Lorazepam 2 MG/ML VIAL SLOW IVP PRN (01:35)
[2021-09-12 02:24] LABS: O2 Tension (PaO2), arterial 38.9 mmHg (> 60.0)
[2021-09-12 02:25] LABS: ALV-art Gradient 153.635 mmHg (0-20); Puncture Site RRA
[2021-09-12 04:29] LABS: Hemoglobin 8.9 g/dL (12.0-16.0); Mean Corpuscular HGB CONC 31.7 g/dL (32.0-36.0); Mean Corpuscular Hemoglobin 28.7 pg (27.0-31.0); Mean Corpuscular Volume 90.5 fL (78.0-98.0); Mean Platelet Volume 9.8 fL (7.4-10.4); Platelet Count 171 thou/uL (130-400); RBC Distribution Width 13.5 % (11.5-14.5); Red Blood Cell (RBC) Count 3.11 mill/uL (4.20-5.40)
[2021-09-12 04:39] LABS: Anion Gap 17 mmol/L (10-20); BUN (Urea Nitrogen) 15 mg/dL (9.8-20.1); Calc. Creatinine Clearance 36 mL/min (70-130); Calcium 7.8 mg/dL (7.8-10.44); Carbon Dioxide 17 mmol/L (23-31); Chloride 105 mmol/L (98-107); Glucose 105 mg/dL (83-110); Phosphorus 3.3 mg/dL (2.3-4.7); Potassium 4.4 mmol/L (3.5-5.1); Sodium 135 mmol/L (136-145)
[2021-09-12 05:47] LABS: Band 19 % (5-11); Lymphocytes 6 % (21-51); MDiff Complete? YES; Monocytes 3 % (0-10); Neutrophil 72 % (42-75)
[2021-09-12] MEDS: Morphine 4 MG/ML VIAL SLOW IVP PRN ×2 (06:33→13:38)
[2021-09-12] MEDS: Levothyroxine Sodium 100 MCG TAB PER TUBE SCH (06:39)
[2021-09-12 07:48] VITALS: TEMP 98.2
[2021-09-12] MEDS: Fleet Enema 133 ML BOT PR SCH (11:13)
[2021-09-12] MEDS: Estradiol 1 MG TAB PO SCH (11:16)
[2021-09-12] MEDS: Carvedilol 6.25 MG TAB PER TUBE SCH (11:21)
[2021-09-12] MEDS: DULoxetine 60 MG CAP PO SCH (11:22)
[2021-09-12] MEDS: Stress 600 With Zinc 1 TAB PO SCH (11:22)
[2021-09-12] MEDS: PHOS-NAK 1 PKT PACK PER TUBE SCH (11:22)
[2021-09-12] MEDS: Polyethylene Glycol 3350 17 GM Packet PO SCH (11:22)
[2021-09-12] MEDS: Pantoprazole 40 MG VIAL IVP SCH (11:23)
[2021-09-12] MEDS: FLUoxetine HCl 20 MG CAP PER TUBE SCH (11:23)
[2021-09-12] MEDS ORDERED: Vancomycin HCl 500 MG in Sodium Chloride 0.9% 100 ML IVPB SCH (22:00)
== END 2021-09-12 14:42 | disposition hospice, inpatient (51) | DRG 91 ==
LOC: ERS 11:29 → 2NO 16:14 → OBSVTOIN 09-05 11:02 → IMCU/EMU 09-11 23:15
PROVIDERS: ADMIT Internal Medicine; ATTEND Family Medicine
PROC: 0D9670Z Drainage of Stomach with Drainage Device, Via Natural or Artificial Opening (ICD-10-PCS; principal; 2021-09-08)
DX: G92.8 Other toxic encephalopathy (principal); J96.01 Acute respiratory failure with hypoxia; Z20.822 Contact with and (suspected) exposure to COVID-19; Z66 Do not resuscitate; E43 Unspecified severe protein-calorie malnutrition; E87.2 Acidosis; N17.9 Acute kidney failure, unspecified; I47.1 Supraventricular tachycardia; E87.0 Hyperosmolality and hypernatremia; I50.9 Heart failure, unspecified; Z96.652 Presence of left artificial knee joint; I95.9 Hypotension, unspecified; D72.829 Elevated white blood cell count, unspecified; E87.6 Hypokalemia; R13.12 Dysphagia, oropharyngeal phase; E20.9 Hypoparathyroidism, unspecified; J44.9 Chronic obstructive pulmonary disease, unspecified; I11.0 Hypertensive heart disease with heart failure; F41.9 Anxiety disorder, unspecified; E03.9 Hypothyroidism, unspecified; G89.29 Other chronic pain; I48.91 Unspecified atrial fibrillation; E83.52 Hypercalcemia; R73.9 Hyperglycemia, unspecified; Z96.642 Presence of left artificial hip joint; F32.A Depression, unspecified; E78.00 Pure hypercholesterolemia, unspecified; K56.41 Fecal impaction; E83.42 Hypomagnesemia; E83.39 Other disorders of phosphorus metabolism; E87.70 Fluid overload, unspecified; Z68.1 Body mass index [BMI] 19.9 or less, adult; Z90.49 Acquired absence of other specified parts of digestive tract; Z90.710 Acquired absence of both cervix and uterus; Z82.49 Family history of ischemic heart disease and other diseases of the circulatory system; Z91.81 History of falling; Z88.0 Allergy status to penicillin; Z88.2 Allergy status to sulfonamides; Z79.890 Hormone replacement therapy; Z79.899 Other long term (current) drug therapy
CPT/HCPCS: 0240U; 36415; 36416; 36600; 70450; 70551; 71045; 74018; 74176; 80048; 80053; 80306; 80307; 81003; 81015; 82306; 82553; 82805; 83036; 83605; 83735; 83880; 83970; 84100; 84484; 85025; 85379; 87040; 87086; 93005; 93010; C9113; J0692; J1940; J2060; J2185; J2270; J3370; J3475; J3480; J3490; J7050; J7070; Q0162; S0028; U0002

== ENCOUNTER 2021-09-12 15:09 | Inpatient (IN) | payer OTHER ==
[2021-09-12] MEDS ORDERED: Ondansetron ODT 4 MG TAB PO PRN (17:45)
[2021-09-12] MEDS ORDERED: Haloperidol Lactate 5 MG/ML VIAL SLOW IVP PRN (17:45)
[2021-09-12] MEDS ORDERED: diphenhydrAMINE 50 MG/ML VIAL IVP PRN (17:45)
[2021-09-12] MEDS ORDERED: diphenhydrAMINE 25 MG CAP PO PRN (17:45)
[2021-09-12] MEDS ORDERED: Senokot 8.6 MG TAB PO PRN (17:45)
[2021-09-12] MEDS ORDERED: Promethazine HCl 25 MG SUPP PR PRN (17:45)
[2021-09-12] MEDS ORDERED: Acetaminophen 650 MG Suppository PR PRN (17:45)
[2021-09-12] MEDS ORDERED: chlorproMAZINE HCl 25 MG in Sodium Chloride 0.9% 50 ML IVPB PRN (17:45)
[2021-09-12] MEDS ORDERED: Scopolamine 1.5 mg/72 hour Patch TOP PRN ×2 (17:45)
[2021-09-12] MEDS ORDERED: ALPRAZolam 0.25 MG TAB PO PRN (17:45)
[2021-09-12] MEDS ORDERED: Hyoscyamine Sulfate SL 0.125 mg Tablet SL PRN (17:45)
[2021-09-12] MEDS ORDERED: Ondansetron PF 4 MG/2 ML Vial IVP PRN (17:45)
[2021-09-12] MEDS ORDERED: Acetaminophen 325 MG TAB PO PRN (17:45)
[2021-09-12] MEDS: Lorazepam 2 MG/ML VIAL SLOW IVP PRN (19:51)
[2021-09-13] MEDS: Morphine 4 MG/ML VIAL SLOW IVP PRN ×2 (02:02→13:52)
[2021-09-13] MEDS: Lorazepam 2 MG/ML VIAL SLOW IVP PRN ×2 (02:03→13:52)
[2021-09-14] MEDS: Morphine 4 MG/ML VIAL SLOW IVP PRN ×3 (00:53→16:34)
[2021-09-14] MEDS: Lorazepam 2 MG/ML VIAL SLOW IVP PRN ×3 (00:53→16:34)
[2021-09-15] MEDS: Morphine 4 MG/ML VIAL SLOW IVP PRN (12:15)
[2021-09-15] MEDS: Lorazepam 2 MG/ML VIAL SLOW IVP PRN (12:15)
[2021-09-15] MEDS: Morphine 20 MG/ML Oral Solution (ROXANOL) SL PRN ×2 (15:40→17:54)
[2021-09-15] MEDS: Lorazepam 1 MG TAB PO PRN (15:40)
[2021-09-16] MEDS: Morphine 10 MG/0.5 ML ORAL SYRINGE SL PRN ×2 (09:51→11:19)
[2021-09-16] MEDS: Lorazepam 1 MG TAB PO PRN (11:42)
[2021-09-16] MEDS ORDERED: Scopolamine 1.5 mg/72 hour Patch TOP PRN (12:58)
[2021-09-16] MEDS: Morphine 20 MG/ML Oral Solution (ROXANOL) FS PRN ×2 (15:46→18:39)
[2021-09-16] MEDS ORDERED: Sodium Chloride For Inhalation 0.9% 3 ML NEB ONE (18:06)
[2021-09-17] MEDS: Morphine 20 MG/ML Oral Solution (ROXANOL) FS PRN (01:11)
[2021-09-17] MEDS ORDERED: Morphine 10 MG/0.5 ML ORAL SYRINGE PO PRN (05:39)
[2021-09-17] MEDS: Morphine 10 MG/0.5 ML ORAL SYRINGE SL PRN (06:03)
[2021-09-17] MEDS: Lorazepam 1 MG TAB PO PRN (06:10)
[2021-09-17 10:19] VITALS: BP 68/41; TEMP 98.5
== END 2021-09-17 11:10 | disposition expired | DRG 951 ==
LOC: IMCU/EMU 15:09 → MSONC 23:51
PROVIDERS: ADMIT Family Medicine; ATTEND Family Medicine
DX: Z51.5 Encounter for palliative care (principal); J96.01 Acute respiratory failure with hypoxia; I42.9 Cardiomyopathy, unspecified; R64 Cachexia; G93.1 Anoxic brain damage, not elsewhere classified; Z66 Do not resuscitate; Z20.822 Contact with and (suspected) exposure to COVID-19; J44.9 Chronic obstructive pulmonary disease, unspecified; M81.0 Age-related osteoporosis without current pathological fracture; Z88.0 Allergy status to penicillin; Z88.2 Allergy status to sulfonamides; Z79.899 Other long term (current) drug therapy; Z79.890 Hormone replacement therapy; Z68.31 Body mass index [BMI] 31.0-31.9, adult
CPT/HCPCS: J2060; J2270